=== PATIENT | male | born 1935 | race Caucasian/White ===

== ENCOUNTER 2017-10-22 12:21 | Outpatient (CLI) | payer MEDICARE ==
--- NOTE | 2017-10-22 12:56 | RAD ---
RIGHT KNEE 4 VIEWS: HISTORY: Right knee pain. FINDINGS/IMPRESSION: No fracture, dislocation, or bony destruction is identified. There is chondrocalcinosis. POS: FELIPE
== END 2017-10-22 12:22 | disposition home or self-care (01) ==
LOC: SCSRAD 12:21
PROVIDERS: ATTEND Family Medicine
DX: M17.11 Unilateral primary osteoarthritis, right knee (principal); M11.261 Other chondrocalcinosis, right knee

== ENCOUNTER 2018-12-11 14:40 | Emergency (ER) | payer MEDICARE, OTHER | END 2018-12-11 16:50 | LOC: ERS 14:40 | DX: I10 Essential (primary) hypertension (principal); G30.9 Alzheimer's disease, unspecified; M10.9 Gout, unspecified; Z79.82 Long term (current) use of aspirin; Z79.899 Other long term (current) drug therapy | CPT/HCPCS: 99283 ==

== ENCOUNTER 2019-01-21 10:11 | Inpatient (IN) | payer MEDICARE, OTHER ==
--- NOTE | 2019-01-21 10:43 | RAD ---
CHEST 1 VIEW: Date: 01/21/19 COMPARISON: None. FINDINGS: There are some atelectatic changes of both lung bases. No pneumothorax. No confluent air space consol idation. Right shoulder hemiarthroplasty with coracoid screw. IMPRESSION: 1. No acute intrathoracic abnormality. 2. Likely a moderate size sliding hiatal hernia. POS: CET
--- NOTE | 2019-01-21 10:49 | CT ---
EXAM: CT brain without contrast HISTORY: Dizziness; recent fall COMPARISON: 11/13/2014 TECHNIQUE: Multiple contiguous axial images were obtained and a CT of the brain without contrast. FINDINGS: There are scattered hypodensities in the subcortical and periventricular white matter consi stent with small vessel ischemic disease. There is no evidence of hydrocephalus, intracranial hemorrhage, or extra-axial fluid collection. The calvarium and overlying soft tissues are unremarkable. The visualized paranasal sinuses and masto id air cells are well aerated. IMPRESSION: No evidence of acute intracranial abnormality
[2019-01-21 11:25] LABS: #Basophils 0.1 thou/uL (0.0-0.2); #Eosinphils 0.4 thou/uL (0.0-0.7); #Lymphocytes 1.7 thou/uL (1.20-3.40); #Monocytes 0.7 thou/uL (0.11-0.59); #Neutrophils 4.9 thou/uL (1.40-6.50); %Basophils 1.1 % (0.0-1.0); %Eosinophils 5.6 % (0.0-10.0); %Lymphocytes 22.1 % (21.0-51.0); %Monocytes 8.8 % (0.0-10.0); %Neutrophils 62.4 % (42.0-75.0); Hemoglobin 15.3 g/dL (14.0-18.0); Mean Corpuscular HGB CONC 33.4 g/dL (32.0-36.0); Mean Corpuscular Hemoglobin 31.8 pg (27.0-31.0); Mean Corpuscular Volume 95.2 fL (78.0-98.0); Mean Platelet Volume 6.8 fL (7.4-10.4); Platelet Count 228 thou/uL (130-400); RBC Distribution Width 13.4 % (11.5-14.5); White Blood Cell (WBC) Count 7.9 thou/uL (4.8-10.8)
[2019-01-21 11:38] LABS: ALT (SGPT) 11 U/L (8-55); AST (SGOT) 15 U/L (5-34); Albumin 3.8 g/dL (3.4-4.8); Alkaline Phosphatase 101 U/L (40-150); Anion Gap 12 mmol/L (10-20); BUN (Urea Nitrogen) 16 mg/dL (8.4-25.7); Bilirubin, Total 0.6 mg/dL (0.2-1.2); Calc. Creatinine Clearance 0 mL/min (70-130); Calcium 9.2 mg/dL (7.8-10.44); Carbon Dioxide 26 mmol/L (23-31); Chloride 102 mmol/L (98-107); Estimated GFR-MDRD 66; Globulin 2.9 g/dL (2.4-3.5); Glucose 82 mg/dL (83-110); Potassium 3.9 mmol/L (3.5-5.1); Protein, Total 6.7 g/dL (5.8-8.1); Sodium 136 mmol/L (136-145)
[2019-01-21 13:37] VITALS: BMI 23.9
[2019-01-21] MEDS ORDERED: Ondansetron PF 4 MG/2 ML Vial IVP PRN (13:41)
[2019-01-21] MEDS ORDERED: Acetaminophen 325 MG TAB PO PRN (13:41)
[2019-01-21] MEDS ORDERED: Guaifenesin DM 100-10/5 ML UDCUP PO PRN (13:41)
[2019-01-21] MEDS ORDERED: Senokot S 8.6-50 MG TAB PO PRN (13:41)
[2019-01-21] MEDS ORDERED: Atropine Sulfate 1 mg/10 ml Syringe IVP PRN (13:41)
[2019-01-21] MEDS ORDERED: Bisacodyl 10 MG SUPP PR PRN (13:41)
[2019-01-21] MEDS ORDERED: Enoxaparin Sodium 40 MG/0.4 ML SYRINGE SC SCH (13:45)
[2019-01-21 14:50] LABS: Troponin I Less than 0.010 ng/mL (< 0.028)
--- NOTE | 2019-01-21 14:57 | HP ---
REASON FOR ADMISSION: Bradycardia, dizziness. HISTORY OF PRESENTING ILLNESS: The patient was sent over from [facility] this morning as he was having bradycardic episodes. Apparently, his heart rate went down to 30s. He has been having shortness of breath and cough for the last 2 days off and on. He apparently fell after feeling dizzy on Thursday with no external injuries. He ambulates by himself. Please note, majority of this history is obtained by talking to son, who is here at bedside, as the patient has dementia. He is not a reliable historian. On arrival here, the patient had an EKG done, which shows sinus bradycardia at 49 beats per minute. He also has first-degree AV block, chronic. Currently, he has no complaints of chest pain, palpitation, PND, or orthopnea. PAST MEDICAL AND SURGICAL HISTORY: 1. History of macular degeneration. 2. Hypertension. 3. Pseudogout. 4. Osteoarthritis. 5. Dementia. CURRENT MEDICATIONS: The patient is on; 1. Aspirin 81 mg p.o. daily. 2. Multivitamin one tablet once daily. 3. Donepezil 10 mg p.o. nightly. 4. Losartan 50 mg p.o. daily. 5. Namenda 10 mg twice daily. ALLERGIES: NO KNOWN DRUG ALLERGIES. PERSONAL HISTORY: Does not abuse alcohol or drugs. He has quit smoking pipes in , prior to which he has smoked 2-3 packs a day for nearly 30 years, quit drinking alcohol in 2003. He is currently a resident of assisted living facility in [facility]. FAMILY HISTORY: Mother has had history of paranoid schizophrenia. Father at the age of 81 years from esophageal cancer. CODE STATUS: Full. The patient has a living will. The oldest son is the power of assistant district attorney, who is here at bedside. REVIEW OF SYSTEMS: CONSTITUTIONAL: Negative for weight loss or gain, ability to conduct usual activities. SKIN: Negative for rash, itching. EYES: Negative for double vision, pain. ENT/MOUTH: Negative for nose bleeding, neck stiffness, pain, tenderness. CARDIOVASCULAR: Negative for palpitations, dyspnea on exertion, orthopnea. RESPIRATORY: Negative for shortness of breath, wheezing, cough, hemoptysis, fever or night sweats. GASTROINTESTINAL: Negative for poor appetite, abdominal pain, heartburn, nausea , vomiting, constipation, or diarrhea. GENITOURINARY: Negative for urgency, frequency, dysuria, nocturia. MUSCULOSKELETAL: Negative for pain, swelling. NEUROLOGIC/PSYCHIATRIC: Negative for anxiety, depression. ALLERGY/IMMUNOLOGIC: Negative for skin rash, bleeding tendency. PHYSICAL EXAMINATION: GENERAL: The patient is an 83-year-old male, who is currently not in any acute distress. VITAL SIGNS: Blood pressure 180/86, pulse 54 per minute, respiratory rate 20 per minute, temperature 98 degrees Fahrenheit, and saturating 96% on room air. NECK: Supple. No elevated JVD. EYES: Extraocular muscles intact. Pupils reacting to light. ORAL CAVITY: Mucous membranes are moist. No exudates or congestion. CARDIOVASCULAR SYSTEM: S1 and S2 heard. Regular rhythm. RESPIRATORY SYSTEM: Air entry 1+ bilateral. Scattered rhonchi plus no rales or wheezes. ABDOMEN: Soft. Bowel sounds heard. No tenderness, rigidity, or guarding. EXTREMITIES: No peripheral edema or calf tenderness. VASCULAR SYSTEM: Peripheral pulses 1+ bilateral. No ischemic ulcerations or gangrene. CENTRAL NERVOUS SYSTEM: No gross focal deficits noted. The patient is alert and awake, but is not fully oriented. PSYCHIATRIC SYSTEM: The patient's mood is euthymic. No hallucinations or delusions. LABORATORY DATA: EKG done shows sinus bradycardia at 49 beats per minute. There is first-degree AV block noted. Poor R-wave progression, questionable Q-waves in V1 and V2. Chest x-ray done shows no acute intrathoracic abnormality. There is a hiatal hernia seen. CT brain without contrast done shows no acute intracranial abnormality. White count 7.9, hemoglobin and hematocrit 15 and 45, platelet count 228, and MCV is 95 with 62% neutrophils. Electrolytes stable. BUN 16, creatinine 1.0, and serum glucose 82. Lactic acid 2.1. Liver enzymes are within normal limits. Troponin-I is less than 0.01. Albumin 3.8. CLINICAL IMPRESSION AND PLAN: The patient will be under observation on telemetry for bradycardia to rule out sick sinus syndrome. We will try to obtain rhythm strips from EMS and the ER, where his heart rate had dropped down to 30s on arrival and prior to arrival. He has uncontrolled hypertension at present. We will place him on 25 mg of Cozaar, 12.5 mg of hydrochlorothiazide, and 25 mg of hydralazine twice daily for now. Atropine p.r.n. if his heart rate drops down to less than 40 and he becomes symptomatic. We will obtain thyroid function tests in the morning with the morning labs. We will keep him n.p.o. after midnight for possible intervention for possible pacemaker if he becomes symptomatic with his bradycardia. He has fallen and has been dizzy on Thursday. It is unclear if this was related to bradycardia. We will obtain orthostatic blood pressures as well. We will continue his Namenda and Aricept as before. Echo with 2D Doppler for LV function will be obtained. Job ID: [id number] [facility]
[2019-01-21 15:27] LABS: Lactic Acid 1.5 mmol/L (0.5-2.2)
[2019-01-21] MEDS: hydrALAZINE 25 MG TAB PO SCH (21:36)
[2019-01-21] MEDS: Donepezil HCl 10 MG TAB PO SCH (21:36)
[2019-01-21] MEDS: Famotidine 20 MG TAB PO SCH (21:36)
--- NOTE | 2019-01-21 21:50 | CON ---
DATE OF CONSULTATION: 01/21/2019 INDICATION FOR CONSULTATION: Episode of coughing and bradycardia. HISTORY OF PRESENT ILLNESS: This is a very unfortunate 83-year-old gentleman who lives in assisted living facility. He has been coughing for quite some time. He was thought to have a possible upper respiratory tract infection. He was seen this morning by the facility and was noted also to have a decrease in the heart rate. It was quoted to be in the 30s, we have no documentation of that. We do have some heart rates of 49 and the 50s, but no heart rate in the 30s and no significant pauses were noted. He has a borderline first-degree heart block. He has had no previous cardiac history that we are aware of. Last Thursday, he did have a fall, but no significant abnormalities were noted at that time and no significant injuries. He denies any chest pain. He has no complaints of significant shortness of breath, but has been coughing recently. He has no previous history of any significant coronary artery disease, bradycardia, family history of heart disease. He has no history of hypercholesterolemia, diabetes. He does have hypertension. He did smoke in the past, but stopped in the . Otherwise he appears to be relatively healthy gentleman. He did have some history of tobacco abuse and alcohol use in the past, but this time remains abstinent. PAST MEDICAL HISTORY: As far as his past medical history is concerned, he does have a history of Alzheimer's disease. He has osteoarthritis, cellulitis of the left hand. He has had cataract surgeries, macular degeneration, pseudogout, hypertension. He has had a right shoulder replacement. He has also had skin cancer removals. SOCIAL HISTORY: He lives in assisted living facility. He drank in the past. He has no tobacco abuse. He has children, who are alive and well. He is a . ALLERGIES: NONE. MEDICATIONS: Prior to admission include: 1. Aspirin. 2. Benadryl. 3. Vitamins. 4. Donepezil. 5. Losartan. 6. Flonase. 7. Namenda. REVIEW OF SYSTEMS: A 12-point review of systems is unremarkable except what was noted in the history of present illness. PHYSICAL EXAMINATION: GENERAL: Reveals a well-developed, well-nourished gentleman, who is in actually no acute distress. He does have obvious dementia and is he is afebrile. VITAL SIGNS: Respiratory rate 20, O2 saturation 96%, blood pressure was elevated at 189/86, heart rates in the 50s and shows a sinus bradycardia. HEENT: Shows the head to be normocephalic and atraumatic. NECK: Carotid pulses are present. I did not hear any bruits. There is no significant JVD noted. The thyroid did not appear to be enlarged. CHEST: Clear to auscultation. I did not any significant rales, rhonchi, or wheezing. He did have some coughing with some slight rhonchi during the examination with deep inspiration, but no significant rales were noted otherwise. CARDIOVASCULAR: Reveals a bradycardia, but no significant murmurs, heaves, thrills, bruits, or rubs are noted. ABDOMEN: Soft, flat, nontender. Positive bowel sounds are present. EXTREMITIES: No clubbing or cyanosis. Pedal pulses are difficult to palpate, but are present. NEUROLOGIC: The patient has evidence of dementia, but no gross focal motor deficits otherwise were noted. SKIN: Warm and dry. LABORATORY DATA: Shows a sodium of 136, potassium of 3.9, BUN 16, creatinine 1.07, blood sugar was 82. Cardiac enzymes are negative. Hematology: Hemoglobin is 15.3, WBC of 7.9, and platelet count of 228,000. IMAGING: EKG shows a sinus bradycardia without any acute changes to indicate previous myocardial infarctions or ischemia. No evidence of pauses. He simply has some sinus bradycardia with a first-degree AV heart block. IMPRESSION: 1. Bradycardia, which may or may not be symptomatic. We will continue to follow the patient. If he becomes symptomatic with bradycardia then a pacemaker would be indicated or if he has any significant pauses or if he remains in a heart rate in the 30s and 40s, we would also suggest a pacemaker in this elderly patient. We will also obtain an echocardiogram for left ventricular systolic function. If ejection fraction is severely compromised and he is not a candidate for pacemaker insertion, but may consider an automatic implantable cardioverter-defibrillator in this gentleman. 2. Dementia. This will be dealt with by the primary care service. He does have significant Alzheimer's and lives in assisted living facility. 3. Hypertension, this will need to be addressed. As far as his medications are concerned, he has been placed on hydrochlorothiazide and losartan. We may need to increase the dose of this medication. Obviously, he is not a candidate for beta blockers. We could always add Norvasc in order to better control the blood pressure. Further recommendations will depend on the results of the echocardiogram and whether or not the patient develops significant bradycardia or pauses in the next 12-24 hours. Job ID: [id number]
[2019-01-22 04:46] LABS: Anion Gap 14 mmol/L (10-20); BUN (Urea Nitrogen) 13 mg/dL (8.4-25.7); Calc. Creatinine Clearance 60 mL/min (70-130); Carbon Dioxide 24 mmol/L (23-31); Chloride 104 mmol/L (98-107); Estimated GFR-MDRD 71; Glucose 83 mg/dL (83-110); Potassium 4.5 mmol/L (3.5-5.1); Sodium 137 mmol/L (136-145)
[2019-01-22 04:49] LABS: Band 1 % (5-11); Hemoglobin 15.3 g/dL (14.0-18.0); Lymphocytes 17 % (21-51); MDiff Complete? YES; Mean Corpuscular HGB CONC 32.9 g/dL (32.0-36.0); Mean Corpuscular Hemoglobin 31.3 pg (27.0-31.0); Mean Corpuscular Volume 94.9 fL (78.0-98.0); Mean Platelet Volume 7.2 fL (7.4-10.4); Monocytes 3 % (0-10); Neutrophil 79 % (42-75); Platelet Count 213 thou/uL (130-400); Platelet Morphology Comment Appears Adequate; RBC Distribution Width 13.3 % (11.5-14.5); RBC Morphology Normal
[2019-01-22 05:07] LABS: Free T4 (Free Thyroxine) 0.9 ng/dL (0.70-1.48)
[2019-01-22] MEDS: Aspirin 81 mg Enteric Coated Tablet PO SCH (08:53)
[2019-01-22] MEDS: Famotidine 20 MG TAB PO SCH ×2 (08:53→22:57)
[2019-01-22] MEDS: Amlodipine 5 MG TAB PO SCH (08:53)
[2019-01-22] MEDS: hydrALAZINE 25 MG TAB PO SCH ×2 (08:54→22:57)
[2019-01-22] MEDS ORDERED: Losartan 25 MG TAB PO SCH ×2 (09:00→15:15)
[2019-01-22] MEDS ORDERED: Hydrochlorothiazide 25 MG TAB PO SCH ×2 (09:00→15:15)
--- NOTE | 2019-01-22 13:15 | PDOC.HOSPP ---
- Subjective Encounter Date: 01/22/19 Encounter Time: 07:00 Subjective: Pt seen for followup re: symptomatic bradycardia. Denies chest pain or shortness fo breath. No fevers or chills. Has not ambulated today. - Objective Vital Signs & Weight: Vital Signs (12 hours) Temp Pulse Resp BP BP BP Pulse Ox 01/22/19 08:53 49 L 157/76 H 01/22/19 07:25 97.9 F 49 L 18 157/76 H 94 L 01/22/19 04:00 97.8 F 56 L 18 137/78 94 L Weight Weight 161 lb 8 oz I&O: 01/21/19 01/22/19 01/23/19 06:59 06:59 06:59 Intake Total 0 Output Total 175 Balance -175 Result Diagrams: 01/22/19 04:16 01/22/19 04:16 Additional Labs: Labs and MARs reviewed by me EKG Reviewed by me: Yes (Tele: sinus bradycardia) Hospitalist ROS - Review of Systems Cardiovascular: denies: chest pain, palpitations, orthopnea, paroxysmal noc. dyspnea, edema, light headedness Gastrointestinal: denies: nausea, vomiting, abdominal pain, diarrhea, constipation, melena, hematochezia - Medication Medications: Active Medications Generic Name Dose Route Start Last Admin Trade Name Freq PRN Reason Stop Dose Admin Amlodipine Besylate 5 mg 01/22/19 09:00 01/22/19 08:53 Norvasc PO 5 mg DAILY MARV Administration Aspirin 81 mg 01/22/19 09:00 01/22/19 08:53 Ecotrin PO 81 mg DAILY MARV Administration Donepezil HCl 10 mg 01/21/19 21:00 01/21/19 21:36 Aricept PO 10 mg HS MARV Administration Famotidine 20 mg 01/21/19 21:00 01/22/19 08:53 Pepcid PO 20 mg BID MARV Administration Hydralazine HCl 25 mg 01/21/19 21:00 01/22/19 08:54 Apresoline PO 25 mg BID MARV Administration Hydrochlorothiazide 12.5 mg 01/22/19 09:00 01/22/19 08:53 Hydrochlorothiazide PO 12.5 mg DAILY MARV Administration Losartan Potassium 25 mg 01/22/19 09:00 01/22/19 08:53 Cozaar PO 25 mg DAILY MARV Administration Memantine 5 mg 01/21/19 21:00 01/22/19 08:53 Namenda PO 5 mg BID MARV Administration - Exam General Appearance: NAD Eye: anicteric sclera ENT: moist mucosa Neck: supple Heart - other findings: S1, S2, reg, syed Respiratory: CTAB Gastrointestinal: soft, non-tender Skin: no lesions Neurological: no weakness Musculoskeletal: normal strength Psychiatric: normal affect, normal behavior Hosp A/P (1) Symptomatic bradycardia Code(s): R00.1 - BRADYCARDIA, UNSPECIFIED Status: Acute (2) HTN (hypertension) Code(s): I10 - ESSENTIAL (PRIMARY) HYPERTENSION Status: Acute (3) Dementia Code(s): F03.90 - UNSPECIFIED DEMENTIA WITHOUT BEHAVIORAL DISTURBANCE Status: Chronic (4) Pseudogout Code(s): M11.20 - OTHER CHONDROCALCINOSIS, UNSPECIFIED SITE Status: Chronic (5) Osteoarthritis Code(s): M19.90 - UNSPECIFIED OSTEOARTHRITIS, UNSPECIFIED SITE Status: Chronic (6) Macular degeneration Code(s): H35.30 - UNSPECIFIED MACULAR DEGENERATION Status: Chronic - Plan Overnight heart rate dropped into 30s. Await 2D echo and cardiology recs re; PPM. Dementia stable, continue Aricept and Namenda. Arthritis and pseudogout stable.
[2019-01-22] MEDS: Donepezil HCl 10 MG TAB PO SCH (22:57)
[2019-01-23] MEDS ORDERED: Sodium Chloride 0.9% 10 ML ONE (08:29)
[2019-01-23] MEDS: Amlodipine 5 MG TAB PO SCH (08:35)
[2019-01-23] MEDS: hydrALAZINE 25 MG TAB PO SCH ×2 (08:35→20:04)
[2019-01-23] MEDS: Aspirin 81 mg Enteric Coated Tablet PO SCH (08:35)
[2019-01-23] MEDS: Famotidine 20 MG TAB PO SCH ×2 (08:36→20:05)
[2019-01-23] MEDS: Hydrochlorothiazide 25 MG TAB PO SCH (08:36)
[2019-01-23] MEDS: Losartan 25 MG TAB PO SCH (08:36)
--- NOTE | 2019-01-23 15:55 | PDOC.CPN ---
- Subjective Date: 01/23/19 Time: 13:00 Interval history: The pt seen and examined. No overnight events. No cardiac complaints. - Objective Allergies/Adverse Reactions: Allergies Allergy/AdvReac Type Severity Reaction Status Date / Time No Known Allergies Allergy Unverified 01/21/19 13:53 Visit Medications: Current Medications Acetaminophen (Tylenol) 650 mg PO Q4H PRN PRN Reason: Headache/Fever/Mild Pain (1-3) Last Admin: 01/23/19 02:48 Dose: 650 mg Albuterol/Ipratropium (Duoneb) 3 ml NEB [id number] PRN PRN Reason: SOB &/or Wheezing Amlodipine Besylate (Norvasc) 5 mg PO DAILY [facility] Last Admin: 01/23/19 08:35 Dose: 5 mg Aspirin (Ecotrin) 81 mg PO DAILY [facility] Last Admin: 01/23/19 08:35 Dose: 81 mg Atropine Sulfate (Atropine) 1 mg IVP Q3H PRN PRN Reason: For HR <40 and symptomatic Bisacodyl (Dulcolax) 10 mg [place] DAILYPRN PRN PRN Reason: Constipation Donepezil HCl (Aricept) 10 mg PO HS [facility] Last Admin: 01/22/19 22:57 Dose: Not Given Famotidine (Pepcid) 20 mg PO BID [facility] Last Admin: 01/23/19 08:36 Dose: 20 mg Guaifenesin/Dextromethorphan (Robitussin Dm) 15 ml PO Q4H PRN PRN Reason: Cough Last Admin: 01/22/19 16:23 Dose: 15 ml Hydralazine HCl (Apresoline) 25 mg PO BID [facility] Last Admin: 01/23/19 08:35 Dose: 25 mg Hydrochlorothiazide (Hydrochlorothiazide) 25 mg PO DAILY [facility] Last Admin: 01/23/19 08:36 Dose: 25 mg Losartan Potassium (Cozaar) 50 mg PO DAILY [facility] Last Admin: 01/23/19 08:36 Dose: 50 mg Memantine (Namenda) 5 mg PO BID [facility] Last Admin: 01/23/19 08:36 Dose: 5 mg Ondansetron HCl (Zofran) 4 mg IVP Q6H PRN PRN Reason: Nausea/Vomiting Senna/Docusate Sodium (Senokot S) 2 tab PO BIDPRN PRN PRN Reason: Constipation Vital Signs & Weight: Vital Signs Temp Pulse Resp BP Pulse Ox 01/23/19 12:06 98 F 64 18 130/78 94 L 01/23/19 07:45 97.8 F 63 14 163/81 H 94 L 01/23/19 04:00 97.8 F 59 L 16 142/77 H 96 Weight 161 lb 8 oz - Physical Exam General: other (alert to self) Neck: supple neck Cardiac: regular rate and rhythm, S1/S2 Lungs: decreased breath sounds Skin: clear Musculoskeletal: decreased range of motion - Labs Result Diagrams: 01/22/19 04:16 01/22/19 04:16 Troponin/CKMB Troponin I Less than 0.010 ng/mL (< 0.028) 01/21/19 14:14 - Telemetry Sinus rhythms and dysrhythmias: sinus rhythm - Assessment/Plan Assessment/Plan: 1. Bradycardia - HR has been 80-90s without any pauses; 2. s/p 7 beats of NSVT on 01/23/2019 - asymptomatic; the pt and family agreed the pt to have stress test 3. HTN - stable 4. Alzheimer's disease MAR reviewed * Echo on 01/22/2019 with EF 60-65% with mild MR. Pt. seen and eval. by me. I agree with the A/P by the EXECUTIVE VICE PRESIDENT AND CHIEF FINANCIAL OFFICER. Due to the NSVTACH, plan for stress test tomorrow. Chest clear. [email or web address]
--- NOTE | 2019-01-23 16:57 | PDOC.HOSPP ---
- Subjective Encounter Date: 01/23/19 Encounter Time: 11:00 Subjective: Pt seen for followup re: NSVT. No complaints today. - Objective Vital Signs & Weight: Vital Signs (12 hours) Temp Pulse Resp BP Pulse Ox 01/23/19 12:06 98 F 64 18 130/78 94 L 01/23/19 07:45 97.8 F 63 14 163/81 H 94 L Weight Weight 161 lb 8 oz I&O: 01/22/19 01/23/19 01/24/19 06:59 06:59 06:59 Intake Total 0 1320 Output Total 175 Balance -175 1320 Result Diagrams: 01/22/19 04:16 01/22/19 04:16 Additional Labs: Labs and MARs reviewed by me. Hospitalist ROS - Review of Systems Cardiovascular: denies: chest pain, palpitations, orthopnea, paroxysmal noc. dyspnea, edema, light headedness Gastrointestinal: denies: nausea, vomiting, abdominal pain, diarrhea, constipation, melena, hematochezia - Medication Medications: Active Medications Generic Name Dose Route Start Last Admin Trade Name Freq PRN Reason Stop Dose Admin Acetaminophen 650 mg 01/21/19 13:41 01/23/19 02:48 Tylenol PO 650 mg Q4H PRN Administration Headache/Fever/Mild Pain (1-3) Amlodipine Besylate 5 mg 01/22/19 09:00 01/23/19 08:35 Norvasc PO 5 mg DAILY MARV Administration Aspirin 81 mg 01/22/19 09:00 01/23/19 08:35 Ecotrin PO 81 mg DAILY MARV Administration Donepezil HCl 10 mg 01/21/19 21:00 01/22/19 22:57 Aricept PO Not Given HS MARV Famotidine 20 mg 01/21/19 21:00 01/23/19 08:36 Pepcid PO 20 mg BID MARV Administration Guaifenesin/Dextromethorphan 15 ml 01/21/19 13:41 01/22/19 16:23 Robitussin Dm PO 15 ml Q4H PRN Administration Cough Hydralazine HCl 25 mg 01/21/19 21:00 01/23/19 08:35 Apresoline PO 25 mg BID MARV Administration Hydrochlorothiazide 25 mg 01/23/19 09:00 01/23/19 08:36 Hydrochlorothiazide PO 25 mg DAILY MARV Administration Losartan Potassium 50 mg 01/23/19 09:00 01/23/19 08:36 Cozaar PO 50 mg DAILY MARV Administration Memantine 5 mg 01/21/19 21:00 01/23/19 08:36 Namenda PO 5 mg BID MARV Administration - Exam General Appearance: NAD Eye: anicteric sclera ENT: moist mucosa Neck: supple Heart: RRR Respiratory: CTAB Gastrointestinal: soft, non-tender Neurological: no weakness Psychiatric: normal affect, normal behavior Hosp A/P (1) NSVT (nonsustained ventricular tachycardia) Code(s): I47.2 - VENTRICULAR TACHYCARDIA Status: Acute (2) HTN (hypertension) Code(s): I10 - ESSENTIAL (PRIMARY) HYPERTENSION Status: Chronic (3) Dementia Code(s): F03.90 - UNSPECIFIED DEMENTIA WITHOUT BEHAVIORAL DISTURBANCE Status: Chronic (4) Pseudogout Code(s): M11.20 - OTHER CHONDROCALCINOSIS, UNSPECIFIED SITE Status: Chronic (5) Osteoarthritis Code(s): M19.90 - UNSPECIFIED OSTEOARTHRITIS, UNSPECIFIED SITE Status: Chronic (6) Macular degeneration Code(s): H35.30 - UNSPECIFIED MACULAR DEGENERATION Status: Chronic (7) Symptomatic bradycardia Code(s): R00.1 - BRADYCARDIA, UNSPECIFIED Status: Resolved - Plan Pt to go for stress test for NSVT. Continue Aricept and Namenda. Arthritis and pseudogout stable.
[2019-01-23] MEDS: Donepezil HCl 10 MG TAB PO SCH (20:05)
[2019-01-24] MEDS ORDERED: Regadenoson 0.4 MG/5 ML SYRINGE ONE (10:30)
--- NOTE | 2019-01-24 12:54 | PDOC.CPN ---
- Subjective Date: 01/24/19 Time: 12:55 Interval history: The pt seen and examined. No overnight events. No cardiac complaints. Sitter at bedside - Objective Allergies/Adverse Reactions: Allergies Allergy/AdvReac Type Severity Reaction Status Date / Time No Known Allergies Allergy Unverified 01/21/19 13:53 Visit Medications: Current Medications Acetaminophen (Tylenol) 650 mg PO Q4H PRN PRN Reason: Headache/Fever/Mild Pain (1-3) Last Admin: 01/23/19 02:48 Dose: 650 mg Albuterol/Ipratropium (Duoneb) 3 ml NEB [id number] PRN PRN Reason: SOB &/or Wheezing Amlodipine Besylate (Norvasc) 5 mg PO DAILY [facility] Last Admin: 01/23/19 08:35 Dose: 5 mg Aspirin (Ecotrin) 81 mg PO DAILY [facility] Last Admin: 01/23/19 08:35 Dose: 81 mg Atropine Sulfate (Atropine) 1 mg IVP Q3H PRN PRN Reason: For HR <40 and symptomatic Bisacodyl (Dulcolax) 10 mg [place] DAILYPRN PRN PRN Reason: Constipation Donepezil HCl (Aricept) 10 mg PO HS [facility] Last Admin: 01/23/19 20:05 Dose: 10 mg Famotidine (Pepcid) 20 mg PO BID [facility] Last Admin: 01/23/19 20:05 Dose: 20 mg Guaifenesin/Dextromethorphan (Robitussin Dm) 15 ml PO Q4H PRN PRN Reason: Cough Last Admin: 01/22/19 16:23 Dose: 15 ml Hydralazine HCl (Apresoline) 25 mg PO BID [facility] Last Admin: 01/23/19 20:04 Dose: 25 mg Hydrochlorothiazide (Hydrochlorothiazide) 25 mg PO DAILY [facility] Last Admin: 01/23/19 08:36 Dose: 25 mg Losartan Potassium (Cozaar) 50 mg PO DAILY [facility] Last Admin: 01/23/19 08:36 Dose: 50 mg Memantine (Namenda) 5 mg PO BID [facility] Last Admin: 01/23/19 20:05 Dose: 5 mg Ondansetron HCl (Zofran) 4 mg IVP Q6H PRN PRN Reason: Nausea/Vomiting Senna/Docusate Sodium (Senokot S) 2 tab PO BIDPRN PRN PRN Reason: Constipation Vital Signs & Weight: Vital Signs Temp Pulse Resp BP BP Pulse Ox 01/24/19 08:00 98.2 F 61 18 118/76 01/24/19 04:00 97.9 F 74 18 150/84 H 94 L Weight 157 lb 9 oz - Physical Exam General: other (confused) Cardiac: regular rate and rhythm, S1/S2 Lungs: decreased breath sounds Skin: clear Musculoskeletal: normal range of motion - Labs Result Diagrams: 01/22/19 04:16 01/22/19 04:16 Troponin/CKMB Troponin I Less than 0.010 ng/mL (< 0.028) 01/21/19 14:14 - Telemetry Sinus rhythms and dysrhythmias: sinus rhythm - Assessment/Plan Assessment/Plan: 1. Bradycardia - HR has been 40-90s without any pauses; 2. S/p 7 beats of NSVT on 01/23/2019 and 01/24/2019 - asymptomatic; Stress test today 3. HTN - stable 4. Alzheimer's disease MAR reviewed * Echo on 01/22/2019 with EF 60-65% with mild MR. * the pt can be tx back to alf with normal stress test Pt. seen and eval. by me. I agree with the A/P by the SENIOR INTERNAL AUDITOR. The stress test does not indicate ischemia. The HR is stable. Okay to d/c back to the nursing facility.
--- NOTE | 2019-01-24 13:05 | NM ---
Nuclear medicine Cardiac myocardial perfusion SPECT Ejection fraction study Wall motion cine: DATE:01/24/2019 7:00 AM INDICATION: History of ventricular tachycardia and chest pain TECHNIQUE: Number of days:2 Rest Study: Technetium 99m-sestamibi (Cardiolite) dose:9.10 mCi Stress study: Technetium 99m-sestamibi (Cardiolite) dose:32.40 mCi FINDINGS: There is prominent vertical motion artifact on both stress and rest images limits image det ail. Cardiac (myocardial perfusion) SPECT No definite reversible myocardial perfusion defect is evident. There is a mild size region of mild re duced activity involving the basal to mid inferior wall likely related to diaphragmatic attenuation. Ejection fraction study Left ventricular EF = 86% Wall motion cine Wall motion and wall thickening appear within normal limits within the limitations of this exam. IMPRESSION: No definite reversible myocardial ischemia demonstrated within the limitations of this exam.
[2019-01-24] MEDS: hydrALAZINE 25 MG TAB PO SCH ×2 (15:46→19:43)
[2019-01-24] MEDS: Hydrochlorothiazide 25 MG TAB PO SCH (15:47)
[2019-01-24] MEDS: Losartan 25 MG TAB PO SCH (15:48)
[2019-01-24] MEDS: Amlodipine 5 MG TAB PO SCH (15:48)
[2019-01-24] MEDS: Aspirin 81 mg Enteric Coated Tablet PO SCH (15:48)
[2019-01-24] MEDS: Famotidine 20 MG TAB PO SCH (15:48)
[2019-01-24 18:08] VITALS: BP 147/76; TEMP 98.9
--- NOTE | 2019-01-25 01:33 | DIS ---
DATE OF ADMISSION: 01/22/2019 DATE OF DISCHARGE: 01/24/2019 PRIMARY CARE PROVIDER: Tate Kelly MD DISCHARGE DIAGNOSES: 1. Symptomatic bradycardia. 2. Nonsustained ventricular tachycardia. 3. Hypertensive urgency. CONDITION OF PATIENT ON THE DAY OF DISCHARGE: Stable. I assessed Mr. Jensen on the day of discharge. He denies any chest pain or shortness of breath. Vital signs are stable. S1 and S2 are heard, regular. Lungs are clear to auscultation bilaterally. FOLLOWUP APPOINTMENTS: The patient is advised to follow up with primary care provider in 3 days time. CONSULTATIONS DURING THIS HOSPITALIZATION: Cardiology, Dr. Be. DISCHARGE MEDICATIONS: 1. Benadryl 25 mg every 8 hours as needed. 2. Aspirin 81 mg daily. 3. Donepezil 10 mg at bedtime. 4. Flonase 1 spray to each naris daily. 5. Floranex one tablet daily. 6. Losartan 50 mg daily. 7. Multivitamins one tab daily. 8. Trazodone 50 mg at bedtime. 9. Amlodipine 5 mg daily. 10. Hydralazine 25 mg 2 times a day. 11. Hydrochlorothiazide 25 mg daily. 12. Namenda dose decreased to 5 mg 2 times a day. HOSPITAL COURSE: Mr. Jensen is a pleasant 83-year-old gentleman, who was admitted to [facility] for symptomatic bradycardia. Cardiology Service was consulted. He did have episodes of bradycardia, but these usually occurred during the night and were considered asymptomatic. His Namenda dose was decreased with improvement in his heart rate. On January 23, he had a 7-beat run of nonsustained ventricular tachycardia. After discussion with patient's son, the patient underwent nuclear stress test on January 24. There was no definite reversible myocardial ischemia demonstrated on the exam. Left ventricular ejection fraction was 86%. He had a mild reduced activity involving the basal to mid inferior wall, likely related to diaphragmatic attenuation. He is being discharged back to assisted living in a stable condition. During this hospitalization, he had a normal TSH. He also had elevated blood pressures. His blood pressure medications were adjusted. Many thanks for allowing me to participate in your patient's care. Please feel free to contact me with any questions or concerns. DISCHARGE DESTINATION: Assisted living. TIME SPENT: Total amount of time spent coordinating this discharge: 32 minutes. Job ID: [id number] MTDD
== END 2019-01-24 19:48 | disposition home or self-care (01) | DRG 310 ==
LOC: ERS 10:11 → 2SW 12:20 → 2NO 17:05 → OBSVTOIN 01-22 16:03
PROVIDERS: ADMIT Internal Medicine; ATTEND Internal Medicine
DX: I47.2 Ventricular tachycardia (principal); G30.9 Alzheimer's disease, unspecified; F02.80 Dementia in other diseases classified elsewhere, unspecified severity, without behavioral disturbance, psychotic disturbance, mood disturbance, and anxiety; I10 Essential (primary) hypertension; M19.91 Primary osteoarthritis, unspecified site; M11.20 Other chondrocalcinosis, unspecified site; H35.30 Unspecified macular degeneration; I16.0 Hypertensive urgency; Z79.82 Long term (current) use of aspirin; Z87.891 Personal history of nicotine dependence
CPT/HCPCS: 36415; 70450; 71045; 78452; 80048; 80053; 83605; 84439; 84443; 84481; 84484; 85025; 87040; 93005; 93017; 93306; A9500; J1650; J2785

== ENCOUNTER 2019-02-06 14:26 | Emergency (ER) | payer MEDICARE, OTHER ==
--- NOTE | 2019-02-06 14:54 | RAD ---
Exam: Chest one view HISTORY:Injury Comparison: 01/21/2019 FINDINGS: Lungs: Mild interstitial prominence at the lung bases, without consolidation. Cardiac silhouette:Accentuated by portable technique and shallow depth of inspiration. Vascular calcification. Pulmonary vessels: Mild prominence of the central pulmonary vasculature. Pleural Spaces: Mild obscuration of left lateral costophrenic sulcus. Pneumothorax: None Osseous abnormalities: Stable IMPRESSION: Findings which may relate to mild fluid overload. Small left pleural effusion not excluded.
--- NOTE | 2019-02-06 15:01 | CT ---
CT Brain WO Con: 02/06/2019 2:39 PM CLINICAL HISTORY: Injury. COMPARISON: 01/21/2019 FINDINGS: Hemorrhage: None. Ventricular system: Compensatory dilatation is similar appearing. Cerebral parenchyma: Microvascular ischemic disease Midline shift: None. Mass: No mass effect. Calvarium: Normal. Visualized Paranasal sinuses: Clear. IMPRESSION: No acute intracranial abnormalities.
== END 2019-02-06 16:35 | disposition home or self-care (01) ==
LOC: ERS 14:26
DX: Z04.3 Encounter for examination and observation following other accident (principal); G30.9 Alzheimer's disease, unspecified; F02.80 Dementia in other diseases classified elsewhere, unspecified severity, without behavioral disturbance, psychotic disturbance, mood disturbance, and anxiety; M19.90 Unspecified osteoarthritis, unspecified site; I10 Essential (primary) hypertension; Z79.899 Other long term (current) drug therapy; Z79.82 Long term (current) use of aspirin; W18.30XA Fall on same level, unspecified, initial encounter
CPT/HCPCS: 70450; 71045

== ENCOUNTER 2019-02-09 13:19 | Inpatient (IN) | payer MEDICARE, OTHER ==
[2019-02-09 14:14] LABS: #Eosinphils 0.2 thou/uL (0.0-0.7); #Lymphocytes 0.8 thou/uL (1.20-3.40); #Monocytes 0.6 thou/uL (0.11-0.59); #Neutrophils 7.7 thou/uL (1.40-6.50); %Basophils 0.2 % (0.0-1.0); %Eosinophils 1.9 % (0.0-10.0); %Lymphocytes 8.4 % (21.0-51.0); %Monocytes 6.6 % (0.0-10.0); Hemoglobin 14.7 g/dL (14.0-18.0); Mean Corpuscular HGB CONC 33.8 g/dL (32.0-36.0); Mean Corpuscular Hemoglobin 31.2 pg (27.0-31.0); Mean Corpuscular Volume 92.1 fL (78.0-98.0); Mean Platelet Volume 7.2 fL (7.4-10.4); Platelet Count 201 thou/uL (130-400); RBC Distribution Width 13.2 % (11.5-14.5); Red Blood Cell (RBC) Count 4.73 mill/uL (4.70-6.10); White Blood Cell (WBC) Count 9.3 thou/uL (4.8-10.8)
[2019-02-09 14:37] LABS: ALT (SGPT) 301 U/L (8-55); AST (SGOT) 186 U/L (5-34); Albumin 3.5 g/dL (3.4-4.8); Alkaline Phosphatase 356 U/L (40-110); Anion Gap 13 mmol/L (10-20); BUN (Urea Nitrogen) 44 mg/dL (8.4-25.7); Bilirubin, Total 1.2 mg/dL (0.2-1.2); CK (CPK) 210 U/L (30-200); Calc. Creatinine Clearance 0 mL/min (70-130); Calcium 9.2 mg/dL (7.8-10.44); Carbon Dioxide 32 mmol/L (23-31); Chloride 92 mmol/L (98-107); Estimated GFR-MDRD 26; Globulin 2.7 g/dL (2.4-3.5); Glucose 122 mg/dL (83-110); Potassium 3.3 mmol/L (3.5-5.1); Protein, Total 6.2 g/dL (5.8-8.1); Sodium 134 mmol/L (136-145)
--- NOTE | 2019-02-09 15:07 | RAD ---
PORTABLE CHEST: Date: 02/09/19 HISTORY: Hypotension. Recent fall. COMPARISON: 02/06/19 study. FINDINGS: Heart size within normal limits. There are some atherosclerotic changes of the aorta. Pulmonary vesse ls do not appear engorged. There is some minimal linear interstitial changes in the bases, which coul d represent atelectasis or scar. IMPRESSION: Linear atelectasis or scar in the lung bases. POS: TPC
--- NOTE | 2019-02-09 16:03 | ULT ---
Gallbladder ultrasound: Multiple grayscale images of right upper quadrant obtained according to protocol. INDICATION: Anorexia FINDINGS: Liver: Normal Gallbladder: Not visualized. Correlate for history of surgical removal Common bile duct is 6-7 mm Ascites: None Incidental note of aneurysmal dilatation of the imaged abdominal aorta, 3.8 cm in diameter. . IMPRESSION: 1. Nonvisualization of gallbladder. 2. Abdominal aortic aneurysm. Recommend appropriate clinical follow-up.
[2019-02-09] MEDS ORDERED: cefTRIAXone\\ROCEPHIN 1 GM VIAL ONE (17:13)
[2019-02-09] MEDS ORDERED: Acetaminophen 325 MG TAB PO PRN (17:38)
[2019-02-09] MEDS ORDERED: Bisacodyl 5 MG TAB PO PRN (17:38)
[2019-02-09] MEDS ORDERED: Acetaminophen 650 MG Suppository PR PRN (17:38)
[2019-02-09] MEDS ORDERED: diphenhydrAMINE 25 MG CAP PO PRN (17:40)
[2019-02-09] MEDS ORDERED: Fluticasone Propionate Nasal Spray 16 gm Bottle NASAL PRN (17:40)
--- NOTE | 2019-02-09 17:49 | HP ---
PRIMARY CARE PROVIDER: Tate Kelly MD. CHIEF COMPLAINT: Low blood pressure. HISTORY OF PRESENT ILLNESS: Mr. Jensen is a pleasant 83-year-old gentleman, who is a resident at [facility]. He was hospitalized at this facility from 01/22 to of this year for symptomatic bradycardia, nonsustained ventricular tachycardia, and hypertensive urgency. The patient himself is unable to provide any significant history because of dementia. He denies any chest pain. He denies any shortness of breath. He knows he is in [place], but is unsure why he is in the hospital. He denies any nausea or vomiting. According to emergency room physician, the patient has not been eating or drinking well. He also reportedly told them he had generalized weakness. He was found to have low blood pressure and transferred to the emergency room. REVIEW OF SYSTEMS: All systems were reviewed and found to be negative except for the pertinent positives mentioned above. PAST MEDICAL HISTORY: 1. Macular degeneration. 2. Hypertension. 3. Pseudogout. 4. Osteoarthritis. 5. Dementia. SURGICAL HISTORY: Unknown. SOCIAL HISTORY: The patient denies tobacco use, alcohol use, or recreational drug use. FAMILY HISTORY: Paranoid schizophrenia in his mother. Esophageal cancer in his father. CODE STATUS: The patient was full code during his last admission. I attempted to reach his son to confirm this, but I was unable to reach him by telephone. ALLERGIES: NO KNOWN DRUG ALLERGIES. DISCHARGE MEDICATIONS: As dictated on my discharge summary dated 01/24/2019. PHYSICAL EXAMINATION: GENERAL: On examination, Mr. Jensen is awake and alert, not in acute distress. VITAL SIGNS: Blood pressure is 101/69, pulse 76, respiratory rate 16, and oxygen saturation 97% on room air. He is afebrile. EYES: No scleral icterus, no conjunctival pallor. ENT: Dry mucosal membranes. No oropharyngeal erythema or exudates. NECK: Supple, nontender. Trachea is midline. RESPIRATORY: Accessory muscles of breathing are not active. Chest wall movements are symmetric bilaterally. Lungs are clear to auscultation without wheeze, rhonchi, or crepitations. CARDIOVASCULAR: S1 and S2 are heard, regular. Peripheral pulses palpable. No carotid bruit. No pericardial rub. ABDOMEN: Soft, nontender. Bowel sounds are heard. NEUROLOGIC: Cranial nerves 2 through 12 intact. MUSCULOSKELETAL: Power is 5/5 in all 4 extremities. SKIN: No rashes or subcutaneous nodules. LYMPHATIC: No cervical lymphadenopathy. PSYCHIATRIC: Normal mood, normal affect, the patient is oriented to person and place, not to time. LABORATORY DATA: Mr. Jensen's labs and investigations were reviewed. I reviewed his electrocardiogram, which shows normal sinus rhythm, no ST changes to suggest an acute coronary syndrome. I also reviewed his chest x-ray, which shows bibasilar atelectasis. He has normal white count, normal hemoglobin, normal platelet count. Decreased sodium of 134, decreased potassium of 3.3, elevated blood urea nitrogen of 44, elevated creatinine of 2.37, elevated AST of 186, elevated ALT of 301, elevated alkaline phosphatase of 356, elevated CK of 210. Normal troponin-I. Urinalysis is pending. He also had gallbladder ultrasound, which did not show gallbladder. He had abdominal aortic aneurysm, that is 3.8 cm in diameter. ASSESSMENT AND PLAN: Mr. Jensen is a pleasant 83-year-old gentleman, who was seen at [facility] on 02/09/2019. His problem list includes: 1. Hypotension: Mr. Jensen is presenting with hypotension, most likely secondary to dehydration from poor oral intake. He will be admitted to the hospital. He will be treated with intravenous fluids. His blood pressure is responding nicely to intravenous fluids. 2. Acute kidney injury: Mr. Jensen is presenting with acute kidney injury, secondary to prerenal causes from poor oral intake. He will be hydrated with intravenous fluids. We will recheck creatinine level. 3. Hypokalemia: We will replace potassium and recheck. 4. Hyponatremia: Mild, likely asymptomatic. 5. History of dementia: We will continue his dementia medications including Namenda and donepezil. 6. Hypertension: We will hold losartan given his elevated creatinine. We will continue amlodipine. We will monitor vital signs and titrate antihypertensives as needed. Many thanks for allowing me to participate in your patient's care. Please feel free to contact me with any questions or concerns. LEVEL OF RISK: High. LEVEL OF COMPLEXITY: High. Job ID: [id number]
[2019-02-09 18:43] LABS: Bilirubin Negative (Negative); Blood, Urine Negative (Negative); Clarity Turbid (Clear); Glucose, Urine (Dipstick) Normal (Negative); Leukocyte Negative Leu/uL (Negative); Nitrite Negative (Negative); Protein, Urine (Dipstick) 30 mg/dL (Neg-Trace); RBC/HPF 0-3 HPF (0-3); Squamous Epithelial 0-3 HPF (0-3)
[2019-02-09 18:52] LABS: Bacteria/HPF None Seen HPF (None Seen)
[2019-02-09] MEDS: Sodium Chloride 0.9% 1,000 ML IV SCH (20:45)
[2019-02-09] MEDS: Donepezil HCl 10 MG TAB PO SCH (20:46)
[2019-02-09] MEDS: hydrALAZINE 25 MG TAB PO SCH (20:46)
[2019-02-09] MEDS: traZODone HCl 50 MG TAB PO SCH (20:46)
[2019-02-09 22:43] VITALS: BMI 22.5
[2019-02-10] MEDS: Sodium Chloride 0.9% 1,000 ML IV SCH ×2 (05:22→18:23)
[2019-02-10] MEDS: Piperacillin/Tazobactam 2.25 GM in Sodium Chloride 0.9% 100 ML IVPB SCH ×4 (05:22→23:39)
[2019-02-10 05:54] LABS: #Lymphocytes 0.4 thou/uL (1.20-3.40); #Monocytes 0.3 thou/uL (0.11-0.59); #Neutrophils 6.2 thou/uL (1.40-6.50); %Basophils 0.2 % (0.0-1.0); %Eosinophils 0.4 % (0.0-10.0); %Lymphocytes 6.1 % (21.0-51.0); %Monocytes 4.8 % (0.0-10.0); %Neutrophils 88.5 % (42.0-75.0); Hemoglobin 13.9 g/dL (14.0-18.0); Mean Corpuscular HGB CONC 33.6 g/dL (32.0-36.0); Mean Corpuscular Volume 92.2 fL (78.0-98.0); Mean Platelet Volume 7.4 fL (7.4-10.4); Platelet Count 174 thou/uL (130-400); RBC Distribution Width 13.3 % (11.5-14.5); Red Blood Cell (RBC) Count 4.48 mill/uL (4.70-6.10)
[2019-02-10 06:16] LABS: Anion Gap 12 mmol/L (10-20); BUN (Urea Nitrogen) 30 mg/dL (8.4-25.7); Calc. Creatinine Clearance 40 mL/min (70-130); Calcium 8.2 mg/dL (7.8-10.44); Carbon Dioxide 24 mmol/L (23-31); Chloride 100 mmol/L (98-107); Estimated GFR-MDRD 49; Glucose 92 mg/dL (83-110); Potassium 3.4 mmol/L (3.5-5.1); Sodium 133 mmol/L (136-145)
[2019-02-10] MEDS ORDERED: Potassium Chloride 20 MEQ TAB PO SCH (08:45)
[2019-02-10] MEDS ORDERED: Amlodipine 5 MG TAB PO SCH (09:00)
[2019-02-10 09:08] LABS: ALT (SGPT) 236 U/L (8-55); AST (SGOT) 120 U/L (5-34); Albumin 2.8 g/dL (3.4-4.8); Alkaline Phosphatase 301 U/L (40-110); Bilirubin, Direct 0.5 mg/dL (0.1-0.3); Bilirubin, Total 1.1 mg/dL (0.2-1.2); Protein, Total 5.9 g/dL (5.8-8.1)
[2019-02-10] MEDS: Lactinex Tablet PO SCH (09:38)
[2019-02-10] MEDS: Aspirin 81 mg Enteric Coated Tablet PO SCH (09:42)
[2019-02-10] MEDS: hydrALAZINE 25 MG TAB PO SCH (09:42)
[2019-02-10] MEDS: Multivitamin W/ Minerals 1 TAB PO SCH (09:42)
--- NOTE | 2019-02-10 14:29 | PDOC.HOSPP ---
- Subjective Encounter Date: 02/10/19 Encounter Time: 07:20 Subjective: Pt seen for followup re: acute renal failure. Feels well, no complaints. - Objective Vital Signs & Weight: Vital Signs (12 hours) Temp Pulse Resp BP BP Pulse Ox 02/10/19 12:00 97.7 F 63 12 91/52 L 96 02/10/19 09:42 66 107/57 L 02/10/19 09:38 66 107/57 L 02/10/19 08:00 97.7 F 66 16 107/57 L 95 02/10/19 04:00 102.9 F H 102 H 17 127/56 L 92 L Weight Weight 149 lb 6.4 oz I&O: 02/09/19 02/10/19 02/11/19 06:59 06:59 06:59 Intake Total 915 Balance 915 Result Diagrams: 02/10/19 05:22 02/10/19 05:22 Additional Labs: Accuchecks 02/10/19 00:28 POC Glucose 85 Labs and MARs reviewed by me EKG Reviewed by me: Yes (Tele; NSR) Hospitalist ROS - Review of Systems Respiratory: denies: cough, shortness of breath, SOB with excertion, pleuritic pain, wheezing Cardiovascular: denies: chest pain, palpitations, orthopnea, paroxysmal noc. dyspnea, edema, light headedness, other Gastrointestinal: denies: nausea, vomiting, abdominal pain, diarrhea, constipation, melena, hematochezia Genitourinary: denies: dysuria, frequency, incontinence, hematuria, retention Skin: denies: rash, lesions, yoseph, bruising - Medication Medications: Active Medications Generic Name Dose Route Start Last Admin Trade Name Freq PRN Reason Stop Dose Admin Acetaminophen 650 mg 02/09/19 17:38 02/10/19 03:57 Tylenol PO 650 mg Q4H PRN Administration Headache/Fever/Mild Pain (1-3) Acetaminophen 650 mg 02/09/19 17:38 02/10/19 05:52 Tylenol PA 650 mg Q4H PRN Administration Headache/Fever/Mild Pain (1-3) Acidophilus 1 tab 02/10/19 09:00 02/10/19 09:38 Floranex PO 1 tab DAILY MARV Administration Amlodipine Besylate 5 mg 02/10/19 09:00 02/10/19 09:38 Norvasc PO 5 mg DAILY MARV Administration Aspirin 81 mg 02/10/19 09:00 02/10/19 09:42 Ecotrin PO 81 mg DAILY MARV Administration Donepezil HCl 10 mg 02/09/19 21:00 02/09/19 20:46 Aricept PO 10 mg HS MARV Administration Hydralazine HCl 25 mg 02/09/19 21:00 02/10/19 09:42 Apresoline PO 25 mg BID MARV Administration Sodium Chloride 1,000 mls @ 100 mls/hr 02/09/19 17:45 02/10/19 05:22 Normal Saline 0.9% IV 1,000 mls .Q10H MARV Administration Piperacillin Sod/Tazobactam 100 mls @ 200 mls/hr 02/10/19 06:00 02/10/19 12: 26 Sod 2.25 gm/ Sodium Chloride IVPB 100 mls Q6HR MARV Administration Iron/Minerals/Multivitamins 1 tab 02/10/19 09:00 02/10/19 09:42 Theragran M PO 1 tab DAILY MARV Administration Memantine 5 mg 02/09/19 21:00 02/10/19 09:38 Namenda PO 5 mg BID MARV Administration Trazodone HCl 50 mg 02/09/19 21:00 02/09/19 20:46 Desyrel PO 50 mg HS MARV Administration - Exam General Appearance: NAD Eye: anicteric sclera ENT: normocephalic atraumatic, no oropharyngeal lesions, moist mucosa Neck: supple, symmetric, no JVD, no thyromegaly Heart: RRR, no gallops, no rubs, normal peripheral pulses Respiratory: CTAB, no wheezes, no rales, no ronchi, normal chest expansion, no tachypnea, normal percussion Gastrointestinal: soft, non-tender, non-distended, normal bowel sounds, no palpable masses Extremities: no clubbing Skin: normal turgor, no rashes Neurological: cranial nerve grossly intact Musculoskeletal: normal strength Psychiatric: normal affect, normal behavior Hosp A/P (1) MANISH (acute kidney injury) Code(s): N17.9 - ACUTE KIDNEY FAILURE, UNSPECIFIED Status: Acute (2) Abnormal LFTs Code(s): R94.5 - ABNORMAL RESULTS OF LIVER FUNCTION STUDIES Status: Acute (3) Hyponatremia Code(s): E87.1 - HYPO-OSMOLALITY AND HYPONATREMIA Status: Acute (4) Hypokalemia Code(s): E87.6 - HYPOKALEMIA Status: Acute (5) Dementia Code(s): F03.90 - UNSPECIFIED DEMENTIA WITHOUT BEHAVIORAL DISTURBANCE Status: Chronic (6) Hypotension Status: Resolved (7) HTN (hypertension) Code(s): I10 - ESSENTIAL (PRIMARY) HYPERTENSION Status: Chronic (8) Macular degeneration Code(s): H35.30 - UNSPECIFIED MACULAR DEGENERATION Status: Chronic (9) Osteoarthritis Code(s): M19.90 - UNSPECIFIED OSTEOARTHRITIS, UNSPECIFIED SITE Status: Chronic - Plan plan discussed w/ family, out of bed/ambulate Creatinine improved to 1.38, continue IV fluids (prerenal acute kidney injury). Hold amlodipine and hydralazine. Replace potassium. No evidence of infection. Discussed with son over phone, updated him. Continue Namenda and Donepezil.
[2019-02-10] MEDS: traZODone HCl 50 MG TAB PO SCH (21:39)
[2019-02-10] MEDS: Donepezil HCl 10 MG TAB PO SCH (21:39)
[2019-02-11] MEDS: Sodium Chloride 0.9% 1,000 ML IV SCH ×3 (05:18→17:45)
[2019-02-11] MEDS: Piperacillin/Tazobactam 2.25 GM in Sodium Chloride 0.9% 100 ML IVPB SCH ×3 (05:19→17:34)
[2019-02-11 07:19] LABS: #Eosinphils 0.4 thou/uL (0.0-0.7); #Monocytes 0.5 thou/uL (0.11-0.59); #Neutrophils 6.2 thou/uL (1.40-6.50); %Basophils 0.6 % (0.0-1.0); %Lymphocytes 11.8 % (21.0-51.0); %Monocytes 6.3 % (0.0-10.0); %Neutrophils 76.3 % (42.0-75.0); Hemoglobin 13.2 g/dL (14.0-18.0); Mean Corpuscular HGB CONC 34.1 g/dL (32.0-36.0); Mean Corpuscular Hemoglobin 31.3 pg (27.0-31.0); Mean Corpuscular Volume 91.9 fL (78.0-98.0); Mean Platelet Volume 7.5 fL (7.4-10.4); Platelet Count 171 thou/uL (130-400); RBC Distribution Width 13.5 % (11.5-14.5); Red Blood Cell (RBC) Count 4.21 mill/uL (4.70-6.10); White Blood Cell (WBC) Count 8.1 thou/uL (4.8-10.8)
[2019-02-11] MEDS: Multivitamin W/ Minerals 1 TAB PO SCH (07:38)
[2019-02-11] MEDS: Lactinex Tablet PO SCH (07:38)
[2019-02-11] MEDS: Aspirin 81 mg Enteric Coated Tablet PO SCH (07:38)
[2019-02-11 07:41] LABS: Anion Gap 11 mmol/L (10-20); BUN (Urea Nitrogen) 23 mg/dL (8.4-25.7); Calc. Creatinine Clearance 58 mL/min (70-130); Carbon Dioxide 23 mmol/L (23-31); Chloride 104 mmol/L (98-107); Estimated GFR-MDRD 71; Glucose 91 mg/dL (83-110); Potassium 3.3 mmol/L (3.5-5.1); Sodium 135 mmol/L (136-145)
[2019-02-11 07:45] LABS: ALT (SGPT) 224 U/L (8-55); AST (SGOT) 107 U/L (5-34); Albumin 2.6 g/dL (3.4-4.8); Alkaline Phosphatase 307 U/L (40-110); Bilirubin, Direct 0.8 mg/dL (0.1-0.3); Bilirubin, Total 1.1 mg/dL (0.2-1.2); Protein, Total 5.3 g/dL (5.8-8.1)
[2019-02-11] MEDS ORDERED: Potassium Chloride 20 MEQ TAB PO SCH (08:15)
--- NOTE | 2019-02-11 09:00 | CON ---
DATE OF CONSULTATION: 02/10/2019 REASON FOR CONSULT: Elevated liver tests. HISTORY OF PRESENT ILLNESS: Mr. Jensen is an 83-year-old gentleman with Alzheimer dementia, who lives in an Alzheimer's unit apparently at [facility]. He was brought in by EMS from the senior care there with hypotension. Apparently, there are some reports in the admission ER evaluation, he had not been eating very well or drinking well, but the nurses here report he has been eating fine, in fact, he was upset this morning because he could not get eggs. He had recently been discharged from this hospital on 01/24/2019. He had been here for about 3 days, came in with bradycardia and hypertensive urgency. Apparently had some nonsustained ventricular tachycardia when he was here. He had evaluation with Cardiology, had a stress test that was negative with a good EF. His Namenda dose was decreased with improvement of his heart rate before he left. When he returned here, his blood pressure was much lower 91/56. He has also profound renal insufficiency and mildly elevated liver enzymes, which have been normal in his last admission. The patient really is not aware of his medications or past history. Prior to admission, he was on aspirin, Benadryl, vitamin, donepezil, losartan, Namenda, and Flonase. When he went home on the , amlodipine and hydralazine as well as hydrochlorothiazide have been added to his medication regimen. The nurses report there has been no history of fever or chills. The patient denies any abdominal pain. He is being hydrated here. He did have an ultrasound yesterday of his abdomen because of the abnormal liver enzymes and the gallbladder is absent with h a 6 to 7 mm common bile duct and no evidence of intrahepatic duct dilatation. No ascites. REVIEW OF SYSTEMS: Cannot be obtained as the patient does not really know much of his history. He does not know he lives in a senior care. He does not know he is at [facility]. PAST MEDICAL HISTORY: Macular degeneration; alzheimer dementia, he is a resident of senior care in Alzheimer's unit; hypertension; pseudogout; osteoarthritis. 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 PAST SURGICAL HISTORY: 1. Cataract surgery. 2. Skin cancer removals. 3. Right shoulder replacement. ALLERGIES: NONE. MEDICATIONS: 1. Hydralazine 25 mg b.i.d. 2. Folic acid. 3. Multivitamin. 4. Mirtazapine 15 mg at bedtime. 5. Losartan 50 mg daily. 6. Namenda 10 mg b.i.d. 7. HCTZ 25 mg daily. 8. Fluticasone. 9. Donepezil 10 mg at bedtime. 10. Aspirin. 11. Amlodipine 5 mg daily. Present medications, 1. Tylenol. 2. Floranex. 3. Aspirin. 4. Bisacodyl. 5. Benadryl. 6. Aricept. 7. Donepezil. 8. Multivitamin. 9. Namenda 5 mg b.i.d. 10. Zosyn. 11. Trazodone. PHYSICAL EXAMINATION: VITAL SIGNS: Temperature max 102 on 02/10, at present 97.7; blood pressure 107/56; pulse 63. GENERAL: The patient is resting in bed. He is confused. He knows he is in the hospital. He does not know where he lives. He is noncombative. HEENT: Oropharynx, no lesions. NECK: Supple without any adenopathy. LUNGS: Clear. HEART: Regular rate and rhythm without clicks, rubs, or murmurs. ABDOMEN: Soft and nontender. There is no rebound. There is no guarding. There is no palpable hepatosplenomegaly. EXTREMITIES: No clubbing, cyanosis, or edema. LABORATORY DATA: White count 7, it was 9 yesterday; hemoglobin is 13.9, it was 14 yesterday; platelet count is 174, it was 201 yesterday. Differential is noted for 88% segs. Sodium 133, potassium 3.4, BUN and creatinine are 30 and 1.38, they were 44 and 2.37 yesterday. AST was 186, today it is 120; ALT is 310, now 236; alkaline phosphatase was 356, now 301. Lipase was not checked. Albumin 3.5, total protein 6.2. The patient's AST was 15 on 01/21 and ALT was 11 on 01/21, that was at his last admission. Ultrasound as reviewed above. ASSESSMENT: This is a gentleman, who came in with hypotension, not eating well. There is one reported fever, I am not sure what this is based on as he had no fever on presentation to the emergency room and he has had no fever since. He has had no leukocytosis, mild elevation in left shift, no signs of anemia. His LFTs were elevated from when he came in last time when they were completely normal and prerenal azotemia. There are no overt signs of sepsis this time. Blood cultures are negative thus far. I suspect he is hypotensive from the addition of three antihypertensive medicines between his previous admission and this admission. When he was discharged last time, he went home on several new blood pressure medications. He probably has ischemic hepatopathy from low blood pressure. If his blood cultures are negative, I would stop his antibiotics as there are no overt signs of sepsis unless something grows in the urine. He did have white blood cells, but no bacteria. If his liver function test return to normal, I think I would be less concerned about any biliary tract disease. He has no gallstones and normal common bile duct. No right upper quadrant pain. We will follow along with you. Differential diagnosis would include some type of biliary sepsis or medication reaction. Job ID: [id number]
--- NOTE | 2019-02-11 17:15 | PRG ---
DATE OF SERVICE: 02/11/2019 SUBJECTIVE: Mr. Jensen is resting comfortably in bed. He is eating lunch. He states he is having a good day. MEDICATIONS: Reviewed. OBJECTIVE: VITAL SIGNS: Temperature 97.4, pulse 63, blood pressure ABDOMEN: Soft and nontender. No rebound. No guarding. LABORATORY DATA: White count 8.1, hemoglobin 13.2, platelet count 171. Sodium 135, potassium 3.3, bilirubin is 1.1. AST and ALT are 107 and 224, down from 120 and 236 yesterday. Alkaline phosphatase 307. ASSESSMENT: Mildly elevated liver enzymes, suspect related to mild shock liver presented with. He has had no abdominal pain. He has no signs of cholangitis. His abdomen is nontender. RECOMMENDATIONS: I would continue to follow his liver function tests to normal as they were normal on his previous admission just a month ago. Alternatively, it could be medication related. It does not seem that he has any biliary tract disease in terms of choledocholithiasis. There is a great bump up where the MRCP could be considered at this time. We will follow from a distance. Thank you for including me in this patient's evaluation. Job ID: [id number]
--- NOTE | 2019-02-11 17:46 | PDOC.HOSPP ---
- Subjective Encounter Date: 02/11/19 Encounter Time: 09:40 Subjective: Pt seen for followup re; abnormal LFTs. Feels well, no complaints. - Objective Vital Signs & Weight: Vital Signs (12 hours) Temp Pulse Resp BP Pulse Ox 02/11/19 08:00 92 L 02/11/19 07:51 97.4 F L 63 16 145/80 H 92 L Weight Weight 157 lb 14.4 oz I&O: 02/10/19 02/11/19 02/12/19 06:59 06:59 06:59 Intake Total 915 1420 600 Balance 915 1420 600 Result Diagrams: 02/11/19 06:54 02/11/19 06:54 Additional Labs: Labs and MARs reviewed by id Hospitalist ROS - Review of Systems Constitutional: reports: fever Cardiovascular: denies: chest pain, palpitations, orthopnea, paroxysmal noc. dyspnea, edema, light headedness Gastrointestinal: denies: nausea, vomiting, abdominal pain, diarrhea, constipation, melena, hematochezia - Medication Medications: Active Medications Generic Name Dose Route Start Last Admin Trade Name Freq PRN Reason Stop Dose Admin Acetaminophen 650 mg 02/09/19 17:38 02/10/19 03:57 Tylenol PO 650 mg Q4H PRN Administration Headache/Fever/Mild Pain (1-3) Acetaminophen 650 mg 02/09/19 17:38 02/10/19 05:52 Tylenol PA 650 mg Q4H PRN Administration Headache/Fever/Mild Pain (1-3) Acidophilus 1 tab 02/10/19 09:00 02/11/19 07:38 Floranex PO 1 tab DAILY MARV Administration Aspirin 81 mg 02/10/19 09:00 02/11/19 07:38 Ecotrin PO 81 mg DAILY MARV Administration Donepezil HCl 10 mg 02/09/19 21:00 02/10/19 21:39 Aricept PO 10 mg HS MARV Administration Sodium Chloride 1,000 mls @ 100 mls/hr 02/09/19 17:45 02/11/19 10:38 Normal Saline 0.9% IV Not Given .Q10H MARV Piperacillin Sod/Tazobactam 100 mls @ 200 mls/hr 02/10/19 06:00 02/11/19 12: 17 Sod 2.25 gm/ Sodium Chloride IVPB 100 mls Q6HR MARV Administration Iron/Minerals/Multivitamins 1 tab 02/10/19 09:00 02/11/19 07:38 Theragran M PO 1 tab DAILY MARV Administration Memantine 5 mg 02/09/19 21:00 02/11/19 07:38 Namenda PO 5 mg BID MARV Administration Trazodone HCl 50 mg 02/09/19 21:00 02/10/19 21:39 Desyrel PO 50 mg HS MARV Administration - Exam General Appearance: NAD Eye: anicteric sclera ENT: moist mucosa Neck: supple Heart: RRR Respiratory: CTAB Gastrointestinal: soft, non-tender Extremities: no clubbing Skin: no rashes Musculoskeletal: normal tone, normal strength Psychiatric: normal affect, normal behavior Hosp A/P (1) Abnormal LFTs Code(s): R94.5 - ABNORMAL RESULTS OF LIVER FUNCTION STUDIES Status: Acute (2) Hyponatremia Code(s): E87.1 - HYPO-OSMOLALITY AND HYPONATREMIA Status: Acute (3) Hypokalemia Code(s): E87.6 - HYPOKALEMIA Status: Acute (4) Dementia Code(s): F03.90 - UNSPECIFIED DEMENTIA WITHOUT BEHAVIORAL DISTURBANCE Status: Chronic (5) Hypotension Status: Resolved (6) HTN (hypertension) Code(s): I10 - ESSENTIAL (PRIMARY) HYPERTENSION Status: Chronic (7) Macular degeneration Code(s): H35.30 - UNSPECIFIED MACULAR DEGENERATION Status: Chronic (8) Osteoarthritis Code(s): M19.90 - UNSPECIFIED OSTEOARTHRITIS, UNSPECIFIED SITE Status: Chronic (9) MANISH (acute kidney injury) Code(s): N17.9 - ACUTE KIDNEY FAILURE, UNSPECIFIED Status: Resolved - Plan Sodium improved to 135. Pt spiked fever overnight, started on IV Zosyn. Follow blood cultures. Replace potassium. Appreciate GI service input. Follow LFTs. Continue Namenda and Donepezil.
[2019-02-11] MEDS ORDERED: Calcium Carbonate 500 MG ChewTAB PO PRN (20:40)
[2019-02-11] MEDS: traZODone HCl 50 MG TAB PO SCH (22:07)
[2019-02-11] MEDS: Donepezil HCl 10 MG TAB PO SCH (22:08)
[2019-02-12] MEDS: Piperacillin/Tazobactam 2.25 GM in Sodium Chloride 0.9% 100 ML IVPB SCH ×5 (00:47→23:30)
[2019-02-12] MEDS: Sodium Chloride 0.9% 1,000 ML IV SCH ×2 (05:19→15:42)
[2019-02-12 06:45] LABS: #Basophils 0.1 thou/uL (0.0-0.2); #Eosinphils 0.4 thou/uL (0.0-0.7); #Lymphocytes 1.2 thou/uL (1.20-3.40); #Monocytes 0.6 thou/uL (0.11-0.59); #Neutrophils 4.4 thou/uL (1.40-6.50); %Basophils 1.4 % (0.0-1.0); %Eosinophils 6.3 % (0.0-10.0); %Lymphocytes 18.1 % (21.0-51.0); %Monocytes 8.6 % (0.0-10.0); %Neutrophils 65.7 % (42.0-75.0); Hemoglobin 12.7 g/dL (14.0-18.0); Mean Corpuscular HGB CONC 33.9 g/dL (32.0-36.0); Mean Corpuscular Hemoglobin 31.1 pg (27.0-31.0); Mean Corpuscular Volume 91.8 fL (78.0-98.0); Mean Platelet Volume 7.3 fL (7.4-10.4); Platelet Count 205 thou/uL (130-400); RBC Distribution Width 13.4 % (11.5-14.5); Red Blood Cell (RBC) Count 4.06 mill/uL (4.70-6.10); White Blood Cell (WBC) Count 6.6 thou/uL (4.8-10.8)
[2019-02-12 07:12] LABS: Anion Gap 12 mmol/L (10-20); BUN (Urea Nitrogen) 18 mg/dL (8.4-25.7); Calc. Creatinine Clearance 67 mL/min (70-130); Calcium 7.8 mg/dL (7.8-10.44); Carbon Dioxide 24 mmol/L (23-31); Chloride 104 mmol/L (98-107); Estimated GFR-MDRD 81; Glucose 86 mg/dL (83-110); Potassium 3.4 mmol/L (3.5-5.1); Sodium 137 mmol/L (136-145)
[2019-02-12 07:14] LABS: ALT (SGPT) 200 U/L (8-55); AST (SGOT) 84 U/L (5-34); Albumin 2.6 g/dL (3.4-4.8); Alkaline Phosphatase 290 U/L (40-110); Bilirubin, Direct 0.6 mg/dL (0.1-0.3); Bilirubin, Total 0.9 mg/dL (0.2-1.2); Protein, Total 5.2 g/dL (5.8-8.1)
[2019-02-12] MEDS: Lactinex Tablet PO SCH (08:06)
[2019-02-12] MEDS: Aspirin 81 mg Enteric Coated Tablet PO SCH (08:07)
[2019-02-12] MEDS: Multivitamin W/ Minerals 1 TAB PO SCH (08:07)
[2019-02-12] MEDS ORDERED: Potassium Chloride 20 MEQ TAB PO SCH (09:00)
--- NOTE | 2019-02-12 13:11 | PDOC.HOSPP ---
- Subjective Encounter Date: 02/12/19 Encounter Time: 09:40 Subjective: Pt seen for followup re; abnormal LFTs. No complaints today. - Objective Vital Signs & Weight: Vital Signs (12 hours) Temp Pulse Resp BP Pulse Ox 02/12/19 08:16 98.0 F 64 18 149/81 H 92 L 02/12/19 08:00 92 L 02/12/19 07:02 92 L Weight Weight 161 lb 3.2 oz I&O: 02/11/19 02/12/19 02/13/19 06:59 06:59 06:59 Intake Total 1420 2280 360 Output Total 975 Balance 1420 1305 360 Result Diagrams: 02/12/19 06:20 02/12/19 06:20 Additional Labs: Accuchecks 02/11/19 19:31 POC Glucose 103 labs and MARs reviewed by pa Hospitalist ROS - Review of Systems Cardiovascular: denies: chest pain, palpitations, orthopnea, paroxysmal noc. dyspnea, edema, light headedness Gastrointestinal: denies: nausea, vomiting, abdominal pain, diarrhea, constipation, melena, hematochezia Skin: denies: rash, lesions, yoseph, bruising - Medication Medications: Active Medications Generic Name Dose Route Start Last Admin Trade Name Freq PRN Reason Stop Dose Admin Acetaminophen 650 mg 02/09/19 17:38 02/10/19 03:57 Tylenol PO 650 mg Q4H PRN Administration Headache/Fever/Mild Pain (1-3) Acetaminophen 650 mg 02/09/19 17:38 02/10/19 05:52 Tylenol [place] 650 mg Q4H PRN Administration Headache/Fever/Mild Pain (1-3) Acidophilus 1 tab 02/10/19 09:00 02/12/19 08:06 Floranex PO 1 tab DAILY MARV Administration Aspirin 81 mg 02/10/19 09:00 02/12/19 08:07 Ecotrin PO 81 mg DAILY MARV Administration Donepezil HCl 10 mg 02/09/19 21:00 02/11/19 22:08 Aricept PO 10 mg HS MARV Administration Sodium Chloride 1,000 mls @ 100 mls/hr 02/09/19 17:45 02/12/19 05:19 Normal Saline 0.9% IV 1,000 mls .Q10H MARV Administration Piperacillin Sod/Tazobactam 100 mls @ 200 mls/hr 02/10/19 06:00 02/12/19 11: 26 Sod 2.25 gm/ Sodium Chloride IVPB 100 mls Q6HR MARV Administration Iron/Minerals/Multivitamins 1 tab 02/10/19 09:00 02/12/19 08:07 Theragran M PO 1 tab DAILY MARV Administration Memantine 5 mg 02/09/19 21:00 02/12/19 08:07 Namenda PO 5 mg BID MARV Administration Sodium Chloride 10 ml 02/12/19 09:00 02/12/19 10:28 Flush - Normal Saline IVF Not Given Q12HR MARV Trazodone HCl 50 mg 02/09/19 21:00 02/11/19 22:07 Desyrel PO 50 mg HS MARV Administration - Exam General Appearance: NAD Eye: anicteric sclera ENT: moist mucosa Neck: supple Heart: RRR Respiratory: CTAB, no wheezes Gastrointestinal: soft, non-tender Extremities: no edema Neurological: no weakness Psychiatric: normal affect, normal behavior Hosp A/P (1) Abnormal LFTs Code(s): R94.5 - ABNORMAL RESULTS OF LIVER FUNCTION STUDIES Status: Acute (2) Hypokalemia Code(s): E87.6 - HYPOKALEMIA Status: Acute (3) Dementia Code(s): F03.90 - UNSPECIFIED DEMENTIA WITHOUT BEHAVIORAL DISTURBANCE Status: Chronic (4) Hypotension Status: Resolved (5) HTN (hypertension) Code(s): I10 - ESSENTIAL (PRIMARY) HYPERTENSION Status: Chronic (6) Macular degeneration Code(s): H35.30 - UNSPECIFIED MACULAR DEGENERATION Status: Chronic (7) Osteoarthritis Code(s): M19.90 - UNSPECIFIED OSTEOARTHRITIS, UNSPECIFIED SITE Status: Chronic (8) MANISH (acute kidney injury) Code(s): N17.9 - ACUTE KIDNEY FAILURE, UNSPECIFIED Status: Resolved (9) Hyponatremia Code(s): E87.1 - HYPO-OSMOLALITY AND HYPONATREMIA Status: Resolved - Plan LFTs improving. Continue IV Zosyn and follow blood cultures. Replace potassium. Continue Namenda and Donepezil.
--- NOTE | 2019-02-12 16:39 | PRG ---
DATE OF SERVICE: 02/12/2019 SUBJECTIVE: Mr. Jensen is resting comfortably in bed. He has no fever or chills. He is eating a little bit. He denies pain. OBJECTIVE: VITAL SIGNS: He has been afebrile since the . Temperature 98.6 , pulse 64, blood pressure 149/81. LUNGS: Clear. ABDOMEN: Soft and nontender. LABORATORY DATA: White count 6.6, platelet count 205, hemoglobin 12.7. Bilirubin is 0.6. AST and ALT 84 and 200, alkaline phosphatase 290, these are all continued to trend down from admission. Microbiology, blood cultures have been negative. ASSESSMENT: 1. The patient presented with hypotension. He had been started on new medicines when he was here just a few weeks ago . 2. The patient also had elevated liver enzymes. There are no signs of biliary obstruction on imaging studies. There have been no signs of overt cholangitis. Blood cultures drawn in the emergency room, which has been negative. He has had his gallbladder previously removed. I suspect that he had a component of shock liver related to his hypotension as his baseline liver function tests have been normal for years before this. At this time, we will sign off. If blood cultures remain negative, I would stop the antibiotics. It does not seem that he has infection. If I can be of any further assistance in the patient's care, please do not hesitate to contact me. Job ID: [id number] MTDD
[2019-02-12] MEDS: traZODone HCl 50 MG TAB PO SCH (21:37)
[2019-02-12] MEDS: Donepezil HCl 10 MG TAB PO SCH (21:37)
--- NOTE | 2019-02-12 23:23 | EKG ---
Test Reason : WEAKNESS Blood Pressure : / mmHG Vent. Rate : 078 BPM Atrial Rate : 078 BPM P-R Int : 202 ms QRS Dur : 094 ms QT Int : 340 ms P-R-T Axes : 049 044 025 degrees QTc Int : 387 ms Normal sinus rhythm with sinus arrhythmia Septal infarct , age undetermined Abnormal ECG Confirmed by DAVIDA SHAY DO ([id number]), make up editor ARELY HESTER ([id number]) on 02/12/2019 11:23:08 PM Referred By: JASPAL Confirmed By:DAVIDA SHAY DO
[2019-02-13] MEDS: Piperacillin/Tazobactam 2.25 GM in Sodium Chloride 0.9% 100 ML IVPB SCH ×4 (05:01→23:25)
[2019-02-13] MEDS: Sodium Chloride 0.9% 1,000 ML IV SCH ×3 (05:03→22:32)
[2019-02-13 07:46] LABS: ALT (SGPT) 207 U/L (8-55); AST (SGOT) 108 U/L (5-34); Albumin 2.5 g/dL (3.4-4.8); Alkaline Phosphatase 262 U/L (40-110); Bilirubin, Direct 0.5 mg/dL (0.1-0.3); Bilirubin, Total 0.8 mg/dL (0.2-1.2); Protein, Total 5.2 g/dL (5.8-8.1)
[2019-02-13] MEDS: Lactinex Tablet PO SCH (07:51)
[2019-02-13] MEDS: Multivitamin W/ Minerals 1 TAB PO SCH (07:51)
[2019-02-13] MEDS: Aspirin 81 mg Enteric Coated Tablet PO SCH (07:51)
--- NOTE | 2019-02-13 13:33 | PRG ---
DATE OF SERVICE: 02/13/2019 SUBJECTIVE: Mr. Jensen states he feels well. He states he is eating well. He has an emesis bag by his bed. He asked if he has nausea, he states no. Confirmed with the nurse, he has not been having nausea or vomiting. OBJECTIVE: VITAL SIGNS: Temperature 97.8, pulse 68, blood pressure 130/81. ABDOMEN: Soft and nontender. GENERAL: He appears to be in no distress. He is mildly demented and pleasant. LABORATORY DATA: Bilirubin 0.5, AST and ALT 108 and 207 with alkaline phosphatase slightly down from yesterday. Microbiology, blood cultures are negative 48 hours. ASSESSMENT AND PLAN: The patient was admitted with hypotension and one recorded fever. It is really my impression that this is probably related to him having a bunch of blood pressure medicines added during his last admission. Imaging studies, ultrasound showed no overt gallstones. He has had a previous cholecystectomy, but a mildly prominent common bile duct, which is often seen as a reservoir effect previous cholecystectomy in light of his reported fever when he came in, which I cannot confirm. We will get an MRCP tomorrow to make sure he does not have any signs of choledocholithiasis. I have gone ahead and ordered this. Job ID: [id number] [facility]
--- NOTE | 2019-02-13 18:24 | PDOC.HOSPP ---
- Subjective Encounter Date: 02/13/19 Encounter Time: 09:00 Subjective: Pt seen for followup re: abnormal LFTs. States he feels well, no complaints. - Objective Vital Signs & Weight: Vital Signs (12 hours) Temp Pulse Resp BP Pulse Ox 02/13/19 08:00 97.8 F 69 20 138/81 94 L 02/13/19 07:46 96 Weight Weight 161 lb 3.2 oz I&O: 02/12/19 02/13/19 02/14/19 06:59 06:59 06:59 Intake Total 2280 1200 720 Output Total 975 350 Balance 1305 850 720 Result Diagrams: 02/12/19 06:20 02/12/19 06:20 Additional Labs: labs and MARs reviewed by id Hospitalist ROS - Review of Systems Cardiovascular: denies: chest pain, palpitations, orthopnea, paroxysmal noc. dyspnea, edema, light headedness Skin: denies: rash, lesions, yoseph, bruising - Medication Medications: Active Medications Generic Name Dose Route Start Last Admin Trade Name Freq PRN Reason Stop Dose Admin Acetaminophen 650 mg 02/09/19 17:38 02/10/19 03:57 Tylenol PO 650 mg Q4H PRN Administration Headache/Fever/Mild Pain (1-3) Acetaminophen 650 mg 02/09/19 17:38 02/10/19 05:52 Tylenol [place] 650 mg Q4H PRN Administration Headache/Fever/Mild Pain (1-3) Acidophilus 1 tab 02/10/19 09:00 02/13/19 07:51 Floranex PO 1 tab DAILY MARV Administration Aspirin 81 mg 02/10/19 09:00 02/13/19 07:51 Ecotrin PO 81 mg DAILY MARV Administration Donepezil HCl 10 mg 02/09/19 21:00 02/12/19 21:37 Aricept PO 10 mg HS MARV Administration Sodium Chloride 1,000 mls @ 100 mls/hr 02/09/19 17:45 02/13/19 11:22 Normal Saline 0.9% IV 1,000 mls .Q10H MARV Administration Piperacillin Sod/Tazobactam 100 mls @ 200 mls/hr 02/10/19 06:00 02/13/19 17: 33 Sod 2.25 gm/ Sodium Chloride IVPB 100 mls Q6HR MARV Administration Iron/Minerals/Multivitamins 1 tab 02/10/19 09:00 02/13/19 07:51 Theragran M PO 1 tab DAILY MARV Administration Memantine 5 mg 02/09/19 21:00 02/13/19 07:51 Namenda PO 5 mg BID MARV Administration Sodium Chloride 10 ml 02/12/19 09:00 02/13/19 07:51 Flush - Normal Saline IVF Not Given Q12HR MARV Trazodone HCl 50 mg 02/09/19 21:00 02/12/19 21:37 Desyrel PO 50 mg HS MARV Administration - Exam General Appearance: NAD Eye: anicteric sclera ENT: moist mucosa Neck: supple Heart: RRR Respiratory: CTAB Gastrointestinal: soft, non-tender Neurological: no weakness Psychiatric: normal affect, normal behavior Hosp A/P (1) Abnormal LFTs Code(s): R94.5 - ABNORMAL RESULTS OF LIVER FUNCTION STUDIES Status: Acute (2) Hypokalemia Code(s): E87.6 - HYPOKALEMIA Status: Acute (3) Dementia Code(s): F03.90 - UNSPECIFIED DEMENTIA WITHOUT BEHAVIORAL DISTURBANCE Status: Chronic (4) Hypotension Status: Resolved (5) HTN (hypertension) Code(s): I10 - ESSENTIAL (PRIMARY) HYPERTENSION Status: Chronic (6) Macular degeneration Code(s): H35.30 - UNSPECIFIED MACULAR DEGENERATION Status: Chronic (7) Osteoarthritis Code(s): M19.90 - UNSPECIFIED OSTEOARTHRITIS, UNSPECIFIED SITE Status: Chronic (8) MANISH (acute kidney injury) Code(s): N17.9 - ACUTE KIDNEY FAILURE, UNSPECIFIED Status: Resolved (9) Hyponatremia Code(s): E87.1 - HYPO-OSMOLALITY AND HYPONATREMIA Status: Resolved - Plan plan discussed w/ family, continue antibiotics, PT/OT, out of bed/ambulate Pt to go for MRCP tomorrow. Continue IV Zosyn, blood cultures negative so far. Replace potassium. Continue Namenda and Donepezil. Discussed with son Freddy ([phone]) over phone, updated him.
[2019-02-13] MEDS ORDERED: Potassium Chloride 20 MEQ TAB PO SCH (18:30)
[2019-02-13] MEDS: Donepezil HCl 10 MG TAB PO SCH (20:32)
[2019-02-13] MEDS: traZODone HCl 50 MG TAB PO SCH (20:32)
[2019-02-14] MEDS: Sodium Chloride 0.9% 1,000 ML IV SCH (04:24)
[2019-02-14] MEDS: Piperacillin/Tazobactam 2.25 GM in Sodium Chloride 0.9% 100 ML IVPB SCH ×2 (05:23→11:52)
[2019-02-14 07:27] LABS: ALT (SGPT) 209 U/L (8-55); AST (SGOT) 109 U/L (5-34); Albumin 2.5 g/dL (3.4-4.8); Alkaline Phosphatase 230 U/L (40-110); Bilirubin, Direct 0.4 mg/dL (0.1-0.3); Bilirubin, Total 0.8 mg/dL (0.2-1.2); Protein, Total 5.2 g/dL (5.8-8.1)
[2019-02-14 08:40] LABS: Anion Gap 10 mmol/L (10-20); BUN (Urea Nitrogen) 11 mg/dL (8.4-25.7); Calc. Creatinine Clearance 72 mL/min (70-130); Calcium 7.7 mg/dL (7.8-10.44); Carbon Dioxide 21 mmol/L (23-31); Chloride 108 mmol/L (98-107); Estimated GFR-MDRD 89; Glucose 86 mg/dL (83-110); Sodium 135 mmol/L (136-145)
[2019-02-14] MEDS: Aspirin 81 mg Enteric Coated Tablet PO SCH (09:21)
[2019-02-14] MEDS: Lactinex Tablet PO SCH (09:21)
[2019-02-14] MEDS: Multivitamin W/ Minerals 1 TAB PO SCH (09:21)
[2019-02-14] MEDS ORDERED: ISOVUE-370 76%-LOCM 1 ML ONE (10:44)
--- NOTE | 2019-02-14 11:30 | MRI ---
MRI ABDOMEN WITHOUT CONTRAST: HISTORY: Right upper quadrant abdominal pain with questionable choledocholithiasis. Elevated LFTs. Fever on ad mission. COMPARISON: Gallbladder ultrasound from 02/09/2019. TECHNIQUE: Multiplanar, multisequence MR images were obtained of the abdomen without contrast. FINDINGS: The gallbladder is contracted. There is a questionable small amount of fluid surrounding the gallblad edson. No filling defects are seen within the gallbladder to suggest gallstones. The common bile duct i s normal in caliber but is difficult to visualize given the significant respiration motion artifact. The pancreatic duct is normal in caliber. There is a 1.2 cm well circumscribed focus of high T2 signal in the liver, which likely represents a cyst. There is a 6.4 cm cyst in the left kidney. The right kidney, adrenal glands, spleen, and pancre as are unremarkable. No abdominal adenopathy is seen. No marrow signal abnormality is present. IMPRESSION: 1. No significant enlargement of the biliary tree. 2. Hepatic cyst. 3. Left renal cyst. 4. Possible fluid surrounding the gallbladder. This could also be artifactual as there is significant respiratory motion artifact. No obvious filling defects are seen to suggest gallstones. Acute cholec ystitis cannot be entirely excluded and if concerned, a nuclear medicine HIDA scan could be performed . POS: FELIPE
[2019-02-14] MEDS: Sodium Chloride 0.45% 1,000 ML IV SCH (13:03)
--- NOTE | 2019-02-14 13:14 | PRG ---
DATE OF SERVICE: 02/14/2019 SUBJECTIVE: Mr. Jensen is without complaints. He is resting in bed. OBJECTIVE: VITAL SIGNS: Temperature is 98, pulse is 62, blood pressure is 139/72. ABDOMEN: Soft, nontender. LABORATORY DATA: Today, basic metabolic profile normal. Bilirubin is 0.8. AST and ALT are 109, 209, and ALP 230, which are more than yesterday. MRCP, normal common bile duct, but it is difficult to further evaluate because of motion artifact. there was fluid around the gallbladder. ASSESSMENT: A mild elevation of liver enzymes of unclear etiology. It has been normal in previous admissions. There is no overt evidence of gallstones impacting the gallbladder, was not seen on his previous imaging studies. It is unclear if he has had a previous cholecystectomy. RECOMMENDATIONS: IGNACIO scan. Job ID: [id number]
--- NOTE | 2019-02-14 14:07 | CT ---
EXAM: CT ABDOMEN AND PELVIS HISTORY: Abdominal pain. Abnormal liver function test. COMPARISON: None. CORRELATION: Abdomen MRI performed 02/14/2019. Procedure: Multiple contiguous axial images were obtained and a CT of the abdomen and pelvis with IV contrast. C oronal reformats were performed. FINDINGS: Lower Chest: Bilateral pleural effusions with consolidation due to atelectasis, aspiration or pneumon ia. Vessels: Aneurysmal dilatation of the abdominal aorta, incompletely evaluated. Aneurysm has a saccula r appearance with enhancement involving the aneurysmal thrombosed aneurysm sac. Consultation with cardiovascular surgery is recommended for possible surgical intervention. Heart: Normal heart size. Abdomen: Portal vein:Patent Gallbladder: Contracted. There does appear to be hyperdensity along the wall of the gallbladder which may represent gallbladder calcification versus enhancement. There is a small amount of fluid in the gallbladder fossa. Limited evaluation due to motion. Liver: Limited evaluation due to motion. 1 cm hypodensity in the hepatic dome. No obvious enhancing m asses in the liver. Pancreas: within normal limits. Spleen: Limited evaluation by motion. Grossly no abnormality. Adrenals: within normal limits. Kidneys: Symmetric enhancement. No obstructive uropathy. Exophytic cyst emanating from the left renal cortex, measuring 5.4 x 5.9 cm. Peritoneum: No ascites or free air, no fluid collection. Bowel: Limited evaluation due to the lack of oral contrast administration. No evidence of bowel obstr uction. Ileocecal junction is unremarkable. Normal caliber appendix. Scattered fecal material in a nondistended, nondilated colon. Mesentery and Retroperitoneum: No enlarged mesenteric or retroperitoneal lymph nodes. Abdominal Wall: within normal limits. Pelvis: Reproductive Organs: Reproductive organs are unremarkable. Pelvis: No mass, lymphadenopathy, free air or free fluid. Bladder: within normal limits. Bones: within normal limits. IMPRESSION: 1. Limited evaluation of the upper abdomen due to motion degradation. 2. Left renal cyst. 3. Indeterminate hypodensity in the liver. Refer to abdomen MRI report for further detail. 4. Contracted gallbladder. Possible gallbladder wall calcification. If there is concern, consider HID A scan. 5. 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 Cardiovascular surgical consultation for intervention is recommended. CODE T Transcribed Date/Time: 02/14/2019 3:43 PM
[2019-02-14] MEDS: Piperacillin/Tazobactam 3.375 GM in Sodium Chloride 0.9% 100 ML IVPB SCH (17:15)
[2019-02-14] MEDS: Donepezil HCl 10 MG TAB PO SCH (20:18)
[2019-02-14] MEDS: traZODone HCl 50 MG TAB PO SCH (20:18)
[2019-02-15] MEDS: Piperacillin/Tazobactam 3.375 GM in Sodium Chloride 0.9% 100 ML IVPB SCH ×4 (00:03→16:56)
[2019-02-15] MEDS: Sodium Chloride 0.45% 1,000 ML IV SCH (01:53)
[2019-02-15 06:14] LABS: #Basophils 0.1 thou/uL (0.0-0.2); #Eosinphils 0.5 thou/uL (0.0-0.7); #Lymphocytes 1.3 thou/uL (1.20-3.40); #Monocytes 0.7 thou/uL (0.11-0.59); #Neutrophils 5.8 thou/uL (1.40-6.50); %Basophils 0.9 % (0.0-1.0); %Eosinophils 5.8 % (0.0-10.0); %Lymphocytes 15.1 % (21.0-51.0); %Monocytes 8.8 % (0.0-10.0); %Neutrophils 69.5 % (42.0-75.0); Hemoglobin 12.3 g/dL (14.0-18.0); Mean Corpuscular HGB CONC 33.9 g/dL (32.0-36.0); Mean Corpuscular Hemoglobin 31.2 pg (27.0-31.0); Mean Corpuscular Volume 91.9 fL (78.0-98.0); Mean Platelet Volume 6.7 fL (7.4-10.4); Platelet Count 295 thou/uL (130-400); RBC Distribution Width 13.6 % (11.5-14.5); Red Blood Cell (RBC) Count 3.95 mill/uL (4.70-6.10); White Blood Cell (WBC) Count 8.3 thou/uL (4.8-10.8)
[2019-02-15 06:35] LABS: ALT (SGPT) 183 U/L (8-55); AST (SGOT) 71 U/L (5-34); Albumin 2.7 g/dL (3.4-4.8); Alkaline Phosphatase 223 U/L (40-110); Anion Gap 10 mmol/L (10-20); BUN (Urea Nitrogen) 8 mg/dL (8.4-25.7); Bilirubin, Total 0.9 mg/dL (0.2-1.2); Calc. Creatinine Clearance 68 mL/min (70-130); Calcium 7.8 mg/dL (7.8-10.44); Carbon Dioxide 22 mmol/L (23-31); Chloride 105 mmol/L (98-107); Estimated GFR-MDRD 84; Globulin 2.7 g/dL (2.4-3.5); Glucose 91 mg/dL (83-110); Magnesium 1.8 mg/dL (1.6-2.6); Potassium 3.8 mmol/L (3.5-5.1); Protein, Total 5.4 g/dL (5.8-8.1); Sodium 133 mmol/L (136-145)
--- NOTE | 2019-02-15 07:38 | PDOC.HOSPP ---
- Subjective Encounter Date: 02/14/19 Encounter Time: 11:00 Subjective: Patient seen and examined for Sepsis. Denies any pain or nausea. No new complaints. No overnight events - Objective Vital Signs & Weight: Vital Signs (12 hours) Temp Pulse Resp BP Pulse Ox 02/14/19 20:00 97.9 F 62 15 146/78 H 95 Weight Weight 159 lb 5 oz I&O: 02/14/19 02/15/19 02/16/19 06:59 06:59 06:59 Intake Total 2020 805 Output Total 700 250 Balance 1320 555 Result Diagrams: 02/15/19 05:49 02/15/19 05:49 Hospitalist ROS - Review of Systems Respiratory: denies: cough, dry, shortness of breath, hemoptysis, SOB with excertion, pleuritic pain, sputum, wheezing, other Cardiovascular: denies: chest pain, palpitations, orthopnea, paroxysmal noc. dyspnea, edema, light headedness, other - Medication Medications: Active Medications Generic Name Dose Route Start Last Admin Trade Name Freq PRN Reason Stop Dose Admin Acetaminophen 650 mg 02/09/19 17:38 02/10/19 03:57 Tylenol PO 650 mg Q4H PRN Administration Headache/Fever/Mild Pain (1-3) Acetaminophen 650 mg 02/09/19 17:38 02/10/19 05:52 Tylenol [place] 650 mg Q4H PRN Administration Headache/Fever/Mild Pain (1-3) Acidophilus 1 tab 02/10/19 09:00 02/14/19 09:21 Floranex PO 1 tab DAILY MARV Administration Aspirin 81 mg 02/10/19 09:00 02/14/19 09:21 Ecotrin PO 81 mg DAILY MARV Administration Calcium Carbonate 1,000 mg 02/11/19 20:40 02/14/19 11:52 Tums PO 1,000 mg Q4H PRN Administration INDIGESTION Donepezil HCl 10 mg 02/09/19 21:00 02/14/19 20:18 Aricept PO 10 mg HS MARV Administration Sodium Chloride 1,000 mls @ 75 mls/hr 02/14/19 12:00 02/15/19 01:53 1/2 Normal Saline IV 1,000 mls .[id number] MARV Administration Piperacillin Sod/Tazobactam 100 mls @ 200 mls/hr 02/14/19 18:00 02/15/19 05: 14 Sod 3.375 gm/ Sodium Chloride IVPB 100 mls Q6HR MARV Administration Iron/Minerals/Multivitamins 1 tab 02/10/19 09:00 02/14/19 09:21 Theragran M PO 1 tab DAILY MARV Administration Memantine 5 mg 02/09/19 21:00 02/14/19 20:18 Namenda PO 5 mg BID MARV Administration Sodium Chloride 10 ml 02/12/19 09:00 02/14/19 20:18 Flush - Normal Saline IVF Not Given Q12HR MARV Trazodone HCl 50 mg 02/09/19 21:00 02/14/19 20:18 Desyrel PO 50 mg HS MARV Administration - Exam General Appearance: NAD Neck: supple, no JVD Heart: RRR, no gallops Respiratory: CTAB, no rales, no ronchi Gastrointestinal: soft, non-tender, normal bowel sounds Extremities: no edema Hosp A/P - Plan DVT proph w/SCDs Severe Sepsis prob due to Cholangitis Abn LFTs prob due to #1 MANISH on CKD 2 Moderate PEM Hyponatremia/Hypokalemia Chronic Anemia Recent hospitalization for NSVT PLAN: CT abd per GI rec - Hold HIDA scan for now Cont Atbx Change diet to clear liqd for now Reduce IVF AM labs PT/OT Cont other meds
[2019-02-15] MEDS ORDERED: Magnesium 2 GM/50 ML 2 GM in Premix Bag 1 BAG IVPB SCH (08:15)
[2019-02-15] MEDS: Saccharomyces boulardii 250 MG CAP PO SCH (08:33)
[2019-02-15] MEDS: Multivitamin W/ Minerals 1 TAB PO SCH (08:33)
[2019-02-15] MEDS: Lactinex Tablet PO SCH (08:33)
[2019-02-15] MEDS: Aspirin 81 mg Enteric Coated Tablet PO SCH (08:33)
[2019-02-15] MEDS ORDERED: Lorazepam 2 MG/ML VIAL SLOW IVP SCH ×2 (10:00→15:15)
--- NOTE | 2019-02-15 12:10 | PDOC.HOSPP ---
- Subjective Encounter Date: 02/15/19 Encounter Time: 12:08 Subjective: Patient seen and examined for Sepsis. No N/V. No new complaints. No overnight events - Objective Vital Signs & Weight: Vital Signs (12 hours) Temp Pulse Resp BP Pulse Ox 02/15/19 08:00 98.3 F 60 20 168/80 H 94 L Weight Weight 159 lb 5 oz I&O: 02/14/19 02/15/19 02/16/19 06:59 06:59 06:59 Intake Total 2020 805 Output Total 700 250 Balance 1320 555 Result Diagrams: 02/15/19 05:49 02/15/19 05:49 Additional Labs: Laboratory Tests 02/15/19 05:49 AST 71 H ALT 183 H Alkaline Phosphatase 223 H Radiology Reviewed by me: Yes (CT abd - contracted GB) Hospitalist ROS - Review of Systems Respiratory: denies: cough, dry, shortness of breath, hemoptysis, SOB with excertion, pleuritic pain, sputum, wheezing, other Cardiovascular: denies: chest pain, palpitations, orthopnea, paroxysmal noc. dyspnea, edema, light headedness, other - Medication Medications: Active Medications Generic Name Dose Route Start Last Admin Trade Name Freq PRN Reason Stop Dose Admin Acetaminophen 650 mg 02/09/19 17:38 02/10/19 03:57 Tylenol PO 650 mg Q4H PRN Administration Headache/Fever/Mild Pain (1-3) Acetaminophen 650 mg 02/09/19 17:38 02/10/19 05:52 Tylenol [place] 650 mg Q4H PRN Administration Headache/Fever/Mild Pain (1-3) Acidophilus 1 tab 02/10/19 09:00 02/15/19 08:33 Floranex PO 1 tab DAILY MARV Administration Aspirin 81 mg 02/10/19 09:00 02/15/19 08:33 Ecotrin PO 81 mg DAILY MARV Administration Calcium Carbonate 1,000 mg 02/11/19 20:40 02/14/19 11:52 Tums PO 1,000 mg Q4H PRN Administration INDIGESTION Donepezil HCl 10 mg 02/09/19 21:00 02/14/19 20:18 Aricept PO 10 mg HS MARV Administration Sodium Chloride 1,000 mls @ 75 mls/hr 02/14/19 12:00 02/15/19 01:53 1/2 Normal Saline IV 1,000 mls .[id number] MARV Administration Piperacillin Sod/Tazobactam 100 mls @ 200 mls/hr 02/14/19 18:00 02/15/19 05: 14 Sod 3.375 gm/ Sodium Chloride IVPB 100 mls Q6HR MARV Administration Iron/Minerals/Multivitamins 1 tab 02/10/19 09:00 02/15/19 08:33 Theragran M PO 1 tab DAILY MARV Administration Memantine 5 mg 02/09/19 21:00 02/15/19 08:33 Namenda PO 5 mg BID MARV Administration Saccharomyces Boulardii 250 mg 02/15/19 09:00 02/15/19 08:33 Florastor PO 250 mg DAILY MARV Administration Sodium Chloride 10 ml 02/12/19 09:00 02/15/19 08:34 Flush - Normal Saline IVF Not Given Q12HR MARV Trazodone HCl 50 mg 02/09/19 21:00 02/14/19 20:18 Desyrel PO 50 mg HS MARV Administration - Exam General Appearance: NAD Neck: supple, no JVD Heart: RRR, no gallops Respiratory: CTAB, no wheezes, no ronchi Gastrointestinal: soft, non-tender, non-distended, normal bowel sounds Extremities: no edema Hosp A/P - Plan DVT proph w/SCDs Severe Sepsis prob due to ?Cholangitis Abn LFTs prob due to #1 MANISH on CKD 2 Moderate PEM Hyponatremia/Hypokalemia Chronic Anemia Recent hospitalization for NSVT PLAN: CT abd reviewed HIDA scan today Cont Atbx Cont clear liqd diet Cont IVF - change IVF to NS Cont other meds AM labs
[2019-02-15] MEDS: Sodium Chloride 0.9% 1,000 ML IV SCH (12:57)
--- NOTE | 2019-02-15 16:04 | NM ---
Radionucleotide hepatobiliary scan with gallbladder ejection fraction HISTORY: Right upper quadrant pain. FINDINGS: Early images show physiologic radiotracer throughout the hepatic parenchyma. Gallbladder fi rst seen at 5 minutes. Uptake within the small bowel at 3 minutes. After administration of CCK analog, there is near complete excretion of radiotracer from the gallbladder to the small bowel. Ejec tion fraction calculated at 90%. IMPRESSION: Normal exam. Normal gallbladder ejection fraction.
--- NOTE | 2019-02-15 18:58 | PRG ---
DATE OF SERVICE: 02/15/2019 SUBJECTIVE: Mr. Jensen is resting comfortably in bed. OBJECTIVE: VITAL SIGNS: Temperature 98.3. He has been afebrile since admission. Pulse is 60 and blood pressure 160/80. LUNGS: Clear. HEART: Regular rhythm. ABDOMEN: Nontender. IMAGING: CAT scan showed a contracted gallbladder, but no abnormalities in the liver. HIDA scan showed normal gallbladder function. LABORATORY DATA: Normal CBC. AST and ALT mildly elevated at 71 and 183, and alkaline phosphatase of 223. ASSESSMENT: Mildly elevated liver enzymes. He had isolated fever on admission. Blood cultures were negative. He had no white count. I am not sure if he has fever. I would stop his antibiotics at this point in time. I consider medications as being the cause of abnormal LFTs. Apparently, medicines were added at last admission for blood pressure, but these have been discontinued, may reasonable to hold his Namenda. He can be discharged home and followed by his primary physician in the outpatient setting. We will advance diet. Job ID: [id number]
[2019-02-15] MEDS: Donepezil HCl 10 MG TAB PO SCH (20:15)
[2019-02-15] MEDS: traZODone HCl 50 MG TAB PO SCH (20:15)
[2019-02-15] MEDS ORDERED: Enoxaparin Sodium 40 MG/0.4 ML SYRINGE SC SCH (21:00)
[2019-02-16 07:36] LABS: Albumin 2.8 g/dL (3.4-4.8)
[2019-02-16 07:37] LABS: Chloride 106 mmol/L (98-107); Potassium 3.9 mmol/L (3.5-5.1); Sodium 135 mmol/L (136-145)
[2019-02-16 07:38] LABS: Glucose 90 mg/dL (83-110)
[2019-02-16 07:39] LABS: Protein, Total 5.8 g/dL (5.8-8.1)
[2019-02-16 07:40] LABS: Anion Gap 12 mmol/L (10-20); Bilirubin, Total 0.8 mg/dL (0.2-1.2); Carbon Dioxide 21 mmol/L (23-31)
[2019-02-16 07:41] LABS: Alkaline Phosphatase 203 U/L (40-110)
[2019-02-16 07:42] LABS: Calc. Creatinine Clearance 71 mL/min (70-130); Estimated GFR-MDRD 89
[2019-02-16 07:43] LABS: BUN (Urea Nitrogen) 7 mg/dL (8.4-25.7)
[2019-02-16 07:44] LABS: ALT (SGPT) 139 U/L (8-55); AST (SGOT) 40 U/L (5-34)
[2019-02-16 07:45] VITALS: TEMP 97.6
[2019-02-16 07:45] LABS: Lipase 186 U/L (8-78)
[2019-02-16] MEDS: Aspirin 81 mg Enteric Coated Tablet PO SCH (09:27)
[2019-02-16] MEDS: Saccharomyces boulardii 250 MG CAP PO SCH (09:27)
[2019-02-16] MEDS: Multivitamin W/ Minerals 1 TAB PO SCH (09:27)
[2019-02-16] MEDS: Lactinex Tablet PO SCH (09:27)
[2019-02-16] MEDS: Sodium Chloride 0.9% 1,000 ML IV SCH (09:28)
--- NOTE | 2019-02-16 13:28 | PRG ---
DATE OF SERVICE: 02/16/2019 SUBJECTIVE: Mr. Jensen is eating spaghetti pasta. He is doing well. Temperature is 97.6. He has been afebrile since 02/10, when he had a temperature of 102.9, substantiate that. He has had no leukocytosis since admission. His liver function tests continue to slowly improve with AST and ALT of 40 and 139 with alkaline phosphatase of 203. ASSESSMENT: Unknown etiology for mildly elevated liver function tests. He has had negative CT, negative HIDA scan, negative MRCP, and ultrasound showed contracted gallbladder. RECOMMENDATIONS: I think he can go home to be followed by his outpatient physician. If he has recurrent abdominal pain or fever, he can come back and take out his gallbladder, I guess, but at this point in time, it appears there is no evidence of gallbladder dysfunction, gallstones, or biliary obstruction. We will follow along with you. I would stop any medications that were stopped at his last discharge as that is when his liver enzymes are noted to go up. Job ID: [id number]
[2019-02-16] MEDS ORDERED: Amlodipine 5 MG TAB PO SCH (13:30)
[2019-02-16 14:47] VITALS: BP 153/93
--- NOTE | 2019-02-17 12:00 | PQF ---
Please forward to physician who discharged this patient... thanks. SAP Darklight Inspector Crystal Reports Winform ViewerFOUNTJEREL,EBER Felipe JASMYEN PIÑA [id number] [id number] CLINICAL DOCUMENTATION CLARIFICATION FORM: POST DISCHARGE Addendum to original discharge summary date: ____ Late entry note date: __ DATE: 02/17/2019 ATTN: JASMYNE PIÑA Please exercise your independent, professional judgment in responding to the clarification form. Clinical indicators are provided on the bottom of this form for your review Please check appropriate box(s) to clarify if the following diagnosis has been ruled in or ruled out: Liver shock [ ] Ruled in diagnosis [ ] Continue to treat [ ] Resolved [ ] Ruled out diagnosis [ ] Cannot rule out diagnosis [ ] Other diagnosis [ ] Unable to determine For continuity of documentation, please document condition throughout progress notes and discharge summary. Thank You. CLINICAL INDICATORS - SIGNS / SYMPTOMS / LABS - Hypotension, likely sec to dehydration from poor oral intake-H&P, 02/09, Casey Parisi MD - Abnormal LFTs- acute-Hospital PN, 02/11, Casey Parisi MD - I suspected that he had a component of shock liver related to his hypotension as his baseline liver test-Progress note, 02/12, Alexandra Yo MD - Elevated liver enzymes, there is no biliary obstruction-Progress note, 02/12, Alexandra Yo MD -AST:109H, ALT: 209H, 207H- Laboratory, 02/14 RISK FACTORS - Hypokalemia-H&P, 02/09, Casey Parisi MD - Severe sepsis prob due to cholangitis-Hospital PN, 02/15, Lico Antoine MD - moderate PEM- Hospital PN, 02/15, Lico Antoine MD TREATMENTS -Sodium chloride.IV-MAR, 02/09 (This form is maintained as a part of the permanent medical record) 2014 [employer]. All Rights Reserved SAP Darklight Inspector Crystal Reports Winform ViewerRakitunde Solis [ not provided] [not provided] ALEJANDROD
--- NOTE | 2019-02-17 13:50 | DIS ---
DATE OF ADMISSION: 02/09/2019 DATE OF DISCHARGE: 02/16/2019 DISCHARGE DISPOSITION: Assisted living facility. FOLLOWUP: 1. Follow up with primary care physician, Dr. Tate Kelly, in 1 week. 2. Follow up with Gastroenterology, Dr. Morris, in 2 to 3 weeks. 3. Repeat LFTs after 1 week is recommended. Primary care physician advised to follow. INPATIENT MOTORCOACH OPERATOR: Gastroenterology, Dr. Morris. DISCHARGE MEDICATIONS: 1. Aspirin 81 mg daily. 2. Aricept 10 mg at bedtime. 3. Flonase as needed. 4. Lactobacillus daily. 5. Multivitamin 1 tablet daily. 6. Amlodipine 5 mg daily. 7. Hydralazine 25 mg b.i.d. DIAGNOSTIC TESTS: 1. Abdominal ultrasound on admission showed nonvisualization of the gallbladder. It also showed aneurysmal dilatation of the abdominal aorta, 3.8 cm. 2. Abdominal MRI on February,, showed no significant enlargement of the biliary tree. It showed hepatic cyst with possible fluid surrounding the gallbladder. It also showed 4.9 cm abdominal aortic aneurysm. 3. CT scan of the abdomen and pelvis showed contracted gallbladder. 4. HIDA scan on February,, was normal with normal gallbladder ejection fraction. BRIEF HOSPITAL COURSE: The patient is an 83-year-old male with dementia, presented to the emergency room from [facility] due to low blood pressure. Please refer to the history and physical for further details. The patient was admitted to the hospital with a diagnosis of hypotension with acute kidney injury and sepsis. His WBC count on admission was 9.3 with 83% bandemia. His creatinine on admission was 2.37 that improved to 0.83 at discharge. He was found to have elevated LFTs with alkaline phosphatase of 356 on admission and 203 at discharge. His AST was 186 and ALT was 301. The patient was monitored on the medical floor. He was started on broad-spectrum antibiotic. He underwent several imagings as discussed above. The possibilities could be he may have passed a stone. Acute cholecystitis was ruled out as well. Antibiotics have been discontinued per GI recommendation. He has been cleared by Gastroenterology for discharge. FINAL DIAGNOSES: 1. Severe sepsis, suspected to be due to cholangitis. No other etiology is identified. 2. 4.9 cm abdominal aortic aneurysm. Primary care physician advised to follow. 3. Abnormal LFTs secondary to #1. 4. Acute kidney injury on chronic kidney disease stage 2, secondary to sepsis. 5. Moderate protein-calorie malnutrition. 6. Hypokalemia. 7. Hyponatremia. 8. Chronic anemia. 9. Recent hospitalization for nonsustained ventricular tachycardia. PLAN: Plan of care was discussed with the patient in detail. Job ID: [id number]
--- NOTE | 2019-02-17 23:25 | PQF ---
Please forward to physician who discharged this patient... thanks. SAP Collections Clerk Crystal Reports Winform ViewerFOUNTBANNER BAYWOOD MED[facility] C[facility],EBER Felipe JASMYNE PIÑA [id number] [id number] CLINICAL DOCUMENTATION CLARIFICATION FORM: POST DISCHARGE Addendum to original discharge summary date: ____ Late entry note date: __ DATE: 02/17/2019 ATTN: JASMYNE PIÑA Please exercise your independent, professional judgment in responding to the clarification form. Clinical indicators are provided on the bottom of this form for your review Diagnosis: Severe sepsis Present on Admission (POA): [ ] Yes [ ] No [ ] Unable to determine Coding guidelines require hospitals to identify whether a diagnosis was present on admission (POA) or not. To accurately assign the appropriate POA indicator, this information must be clearly documented within the medical record. CLINICAL INDICATORS - SIGNS / SYMPTOMS / LABS -Severe sepsis prob due to ? cholangitis- Hospital PN, 02/15, Kyler Morris MD -Patient seen and examined for sepsis- Hospital PN, 02/14, Kyler Morris MD - WBC: 9.3 - Laboratory , 02/09 -Temp: 98.9, RR:20, Pulse: 60, BP:91/62 -ED record, 02/09, Dc Summers RN RISK FACTORS: - MANISH- ED record, 02/09, Dc Summers RN - Hypotension- ED record, 02/09, Dc Summers RN TREATMENT: - Rocephin.IV-MAR, 02/09 - Zosyn.IV-MAR, 02/10 (This form is maintained as a part of the permanent medical record) 2014 [employer]. All Rights Reserved Alexandru Solis [not provided] [not provided] MTDD
--- NOTE | 2019-02-22 07:53 | PQF ---
SAP Oncology Rep Specialist Crystal Reports Winform ViewerFOEBER LUCIO MALIK MD [id number] [facility]23 [id number] CLINICAL DOCUMENTATION CLARIFICATION FORM: POST DISCHARGE Addendum to original discharge summary date: ____ Late entry note date: __ DATE: 02/17/2019 ATTN: [id number] Please exercise your independent, professional judgment in responding to the clarification form. Clinical indicators are provided on the bottom of this form for your review Please check appropriate box(s) to clarify if the following diagnosis has been ruled in or ruled out: Liver shock [ x ] Ruled in diagnosis [ ] Continue to treat [ x ] Resolved [ ] Ruled out diagnosis [ ] Cannot rule out diagnosis [ ] Other diagnosis [ ] Unable to determine For continuity of documentation, please document condition throughout progress notes and discharge summary. Thank You. CLINICAL INDICATORS - SIGNS / SYMPTOMS / LABS - Hypotension, likely sec to dehydration from poor oral intake-H&P, 02/09, Casey Parisi MD - Abnormal QPKb-Kjcuh-Mzjnicxs PN, 02/11, Casey Parisi MD - I suspected that he had a component of shock liver related to his hypotension as his baseline liver test-Progress note, 02/12, Alexandra Yo MD - Elevated liver enzymes, there is no biliary obstruction-PN, 02/12, Alexandra Yo MD - AST:109H, ALT:209H, 207H-Laboratory, 02/14 RISK FACTORS - Hypokalemia-H&P, 02/09, Casey Parisi MD - Severe sepsis prob due to cholangitis-Hospital PN, 02/15, Lico Antoine MD - Moderate PEM- Hospital PN, 02/15, Lico Dobson MD TREATMENTS -Sodium Chloride IV, MAR, 02/09 (This form is maintained as a part of the permanent medical record) 2014 [employer]. All Rights Reserved Alexandru Solis [not provided] [not provided] MTDD
--- NOTE | 2019-02-22 22:05 | PQF ---
SAP Garment Fitter Crystal Reports Winform ViewerFOEBER LUCIO MALIK MD [id number] [facility] [id number] CLINICAL DOCUMENTATION CLARIFICATION FORM: POST DISCHARGE Addendum to original discharge summary date: ____ Late entry note date: __ DATE: 02/22/2019 ATTN:MARCO ANTONIO SWAIN MD Please exercise your independent, professional judgment in responding to the clarification form. Clinical indicators are provided on the bottom of this form for your review Diagnosis: Severe Sepsis Present on Admission (POA): [x ] Yes [ ] No [ ] Unable to determine Coding guidelines require hospitals to identify whether a diagnosis was present on admission (POA) or not. To accurately assign the appropriate POA indicator, this information must be clearly documented within the medical record. CLINICAL INDICATORS - SIGNS / SYMPTOMS / LABS - Severe sepsis prob due to ? cholangitis-Hospital PN, 02/15, Srinath Morris MD - Patient seen and examined for sepsis-Hospital PN, 02/14, Srinath Morris MD - WBC:9.3-Laboratory 02/09 - Temp: 98.9, RR:20, Pulse:60, BP:91/62, ED record 02/09, Dc Summers RN RISK FACTORS: - MANISH- ED record, 02/09, Dc Summers RN - Hypotension- ED record, 02/09, Dc Summers RN TREATMENT: -Rocephin.IV-JUL, 02/09 -Zosyn.IV-MAR, 02/10 (This form is maintained as a part of the permanent medical record) 2014 [employer]. All Rights Reserved Alexandru Solis [not provided] [not provided] MTDD
== END 2019-02-16 16:31 | disposition home or self-care (01) | DRG 871 ==
LOC: ERS 13:19 → 2NO 18:41 → T4-B 02-10 16:27
PROVIDERS: ADMIT Internal Medicine; ATTEND Internal Medicine
DX: A41.9 Sepsis, unspecified organism (principal); K72.00 Acute and subacute hepatic failure without coma; N17.9 Acute kidney failure, unspecified; E87.1 Hypo-osmolality and hyponatremia; K83.09 Other cholangitis; E44.0 Moderate protein-calorie malnutrition; I95.9 Hypotension, unspecified; R65.20 Severe sepsis without septic shock; H35.30 Unspecified macular degeneration; M19.90 Unspecified osteoarthritis, unspecified site; I16.0 Hypertensive urgency; E86.0 Dehydration; I12.9 Hypertensive chronic kidney disease with stage 1 through stage 4 chronic kidney disease, or unspecified chronic kidney disease; N18.2 Chronic kidney disease, stage 2 (mild); M11.20 Other chondrocalcinosis, unspecified site; E87.6 Hypokalemia; G30.9 Alzheimer's disease, unspecified; F02.80 Dementia in other diseases classified elsewhere, unspecified severity, without behavioral disturbance, psychotic disturbance, mood disturbance, and anxiety; Z96.611 Presence of right artificial shoulder joint; D64.9 Anemia, unspecified; Z98.49 Cataract extraction status, unspecified eye; Z68.23 Body mass index [BMI] 23.0-23.9, adult
CPT/HCPCS: 36415; 36416; 51701; 70450; 71045; 74177; 74181; 76705; 78227; 80048; 80053; 80076; 81003; 81015; 82550; 83690; 83735; 84484; 85025; 87040; 93005; 96361; 96365; A9537; J0696; J1650; J2060; J2543; J3475; J3490